=== PATIENT | female | born 1955 | race Caucasian/White ===

== ENCOUNTER → 2020-01-11 08:16 | Outpatient (CLI) | payer MEDICARE, SELFPAY ==
--- NOTE | 2020-01-11 08:19 | BI_ITS ---
MAMMOGRAPHY - BILATERAL SCREENING REASON FOR EXAM: Female, 64 years old. Routine annual screening examination. PERTINENT HISTORY: Non-contributory. Prior right stereotactic breast biopsy. TECHNIQUE: Digital bilateral breast margarito (3D mammographic acquisition) in the CC and MLO projections. 2-D mediolateral oblique (MLO) and craniocaudad (CC) views of both breasts were obtained. CAD: Full Field Digital Mammography with Computer Added Detection was performed. COMPARISON: Comparison is made with prior outside examination dated October 07, 2015. FINDINGS: Breast Composition: The breasts are heterogeneously dense, which may obscure small masses. There are no dominant masses or suspicious calcifications. Stable benign-appearing bilateral axillary lymph nodes. No other significant abnormalities are identified. There has been no significant change since the prior study. BI/SCREEN MAMM (CAD) W/MARGARITO BILAT IMPRESSION: Stable bilateral screening mammogram. Yearly follow-up mammogram recommended. (A) ASSESSMENT CATEGORY: BIRADS Category 2: Benign. A letter regarding these results will be sent to the patient by the facility within 30 days. Approximately 10% of breast cancers are not detected by mammography. A normal mammogram should not delay biopsy of a clinically suspicious abnormality. [id number] Electronically Signed: Victor Manuel Dumont, at 9:51 EDT , Service support ,
--- NOTE | 2020-01-11 08:19 | US_ITS ---
STUDY: SUPERFICIAL ULTRASOUND - PALPABLE LUMP IN THE LEFT AXILLA. REASON FOR EXAM: Female, 64 years old. LUMP LT AXILLA TECHNIQUE: A superficial ultrasound was performed with real-time and static navarro-scale imaging. COMPARISON: None. FINDINGS: The palpable abnormality corresponds to a 3.8 cm x 4.6 cm x 1.1 cm slightly hypoechoic soft tissue density. A biopsy is recommended for further evaluation US/Ext Non Vasc Limited/Soft Tiss IMPRESSION: 3.8 cm x 4.6 cm x 1.1 sinus likely hypoechoic soft tissue mass. This corresponds to the palpable abnormality. A biopsy is recommended. Electronically Signed: Victor Manuel Dumont, at 12:23 EDT , Service support ,
== END ==
PROVIDERS: PCP Family Medicine; Referring Provider Family Medicine; Visit Provider Family Medicine
DX: Z12.31 Encounter for screening mammogram for malignant neoplasm of breast (principal); D17.9 Benign lipomatous neoplasm, unspecified
CPT/HCPCS: 76882; 77063; 77067

== ENCOUNTER → 2020-01-24 08:57 | Outpatient (CLI) | payer MEDICARE, SELFPAY ==
[2020-01-22 09:27] VITALS: BMI 26.5
[2020-01-24 12:50] LABS: Absolute Lymphocyte Count 1.96 X10^3/uL (0.83-4.51); Absolute Neutrophil Count 3.2 X10^3/uL (2.0-7.7); Basophil# 0.02 X10^3/uL; Basophil% 0.3 % (0-1); Eosinophil# 0.17 X10^3/uL; Eosinophils% 2.9 % (0-5); Hematocrit 39.9 % (37-47); Hemoglobin 13.1 g/dL (12.0-15.0); Lymphocyte # 1.96 X10^3/ul (4.0); Lymphocyte % 33.9 % (19-41); Mean Corp Hgb Conc 32.8 g/dL (32-36); Mean Corpuscular Hgb 28.8 pg (27.0-32.0); Mean Corpuscular Volume 87.7 fL (81-99); Mean Platelet Vol. 10.4 fl (6.2-12.0); Monocyte# 0.47 X10^3/uL; Monocyte% 8.1 % (0-10); NRBC Flagged by Analyzer 0 % (0-5); Neutrophil # 3.15 X10^3/uL (2.7-7.7); Neutrophil % 54.6 % (47-70); Platelet Count 261 K/mm3 (150-450); RBC Distribution Width CV 13.6 % (11.6-14.6); RBC Distribution Width SD 43.8 fl (35.1-43.9); Red Blood Count 4.55 M/mm3 (4.2-5.4); White Blood Count 5.8 K/mm3 (4.4-11.0)
[2020-01-24 13:13] LABS: ALB/GLOB Ratio 0.7 RATIO (0.9-2.4); AST(SGOT) 22 U/L (15-37); Alanine Aminotransfer ALT/SGPT 37 U/L (13-56); Albumin, Serum 3.4 g/dL (3.2-5.0); Alkaline Phosphatase 70 U/L (45-117); Anion Gap 7 (5-15); BUN 20 mg/dL (7-18); BUN/Creat Ratio 20.6 RATIO (10-20); Calcium,Total 9.2 mg/dL (8.5-10.1); Chloride 105 mmol/L (98-107); Cholesterol 243 mg/dL (200); Creatinine, Serum 0.97 mg/dL (0.55-1.02); EST Glomerular Filtration Rate 61 mL/min (>60); Est Glom Filt Rate - Afr Amer 74 mL/min (>60); Globulin 4.6 g/dL (2.2-4.2); Glucose 95 mg/dL (74-106); High Density Lipoprotein 50 mg/dL; Potassium 3.7 mmol/L (3.5-5.1); Sodium Level 137 mmol/L (136-145); T4 Free Direct 1.25 ng/dL (0.76-1.46); Thyroid Stim Hormone (TSH) 0.25 uIU/mL (0.358-3.74); Triglycerides 185 mg/dL; Very Low Density Lipoprotein 37 mg/dL (5-40)
== END ==
PROVIDERS: PCP Family Medicine; Visit Provider Family Medicine
DX: E03.9 Hypothyroidism, unspecified (principal); K21.9 Gastro-esophageal reflux disease without esophagitis; I10 Essential (primary) hypertension; L40.9 Psoriasis, unspecified; E78.5 Hyperlipidemia, unspecified
CPT/HCPCS: 36415; 80053; 80061; 84439; 84443; 85025

== ENCOUNTER → 2020-02-05 10:25 | Outpatient (CLI) | payer MEDICARE, SELFPAY ==
[2020-01-22 09:27] VITALS: BMI 26.5
--- NOTE | 2020-02-05 10:27 | US_ITS ---
STUDY: THYROID ULTRASOUND REASON FOR EXAM: Female, 64 years old. NODULE TECHNIQUE: Ultrasound evaluation of the thyroid was performed with real-time and static navarro-scale imaging. COMPARISON: None. FINDINGS: RIGHT LOBE: The right lobe of the thyroid gland measures 4.3 x 1.5 x 1.4 cm. There is a heterogeneous echotexture. There are no demonstrated solid, cystic or complex lesions. LEFT LOBE: The left lobe of the thyroid gland measures 3.6 x 1.2 x 1.2 cm. There is a heterogeneous echotexture. There are no demonstrated solid, cystic or complex lesions. ISTHMUS: The isthmus measures 6 mm . There is a 2.1 x 1.2 x 0.5 cm left cervical node. US/Thyroid IMPRESSION: The left and right thyroid lobes are heterogeneous in echogenicity. There is no evidence of discrete thyroidal cyst, mass, nodule, or focus of architectural distortion. Electronically Signed: Abram Cota MD at 19:45 EDT , Service support ,
== END ==
PROVIDERS: PCP Family Medicine; Referring Provider Family Medicine; Visit Provider Family Medicine
DX: E04.1 Nontoxic single thyroid nodule (principal)
CPT/HCPCS: 76536

== ENCOUNTER 2020-08-18 05:30 | Inpatient (IN) | payer MEDICARE, SELFPAY ==
[2020-01-22 09:27] VITALS: BMI 26.5
[2020-08-18] VITALS (65 sets, daily range): BP systolic 55–172; BP diastolic 27–119; PULSE 60–162; RESP 12–36; TEMP -17.7–38.7; O2SAT 90–100; BMI 31.4; BMI 69.1
--- NOTE | 2020-08-18 05:50 | EKG12_ITS ---
Test Reason : CARDIAC ARREST Blood Pressure : / mmHG Vent. Rate : 154 BPM Atrial Rate : 079 BPM P-R Int : 000 ms QRS Dur : 132 ms QT Int : 300 ms P-R-T Axes : 000 052 -45 degrees QTc Int : 480 ms Supraventricular tachycardia Right bundle branch block T wave abnormality, consider inferior ischemia Abnormal ECG Confirmed by ALEJANDRO CASEY, DANYEL ([id number]), film editor supervisor ALBINA CASTANEDA ([id number]) on 08/19/2020 10:31:23 AM Referred By: Uri Devi Confirmed By:DANYEL ALLEN MD
--- NOTE | 2020-08-18 05:55 | RAD_ITS ---
STUDY: X-RAY CHEST REASON FOR EXAM: Female, 64 years old. chest pain, altered LOC, STEMI. TECHNIQUE: Single AP portable view of the chest. COMPARISON: None. FINDINGS: Endotracheal tube with the tip approximately 5 cm above the gina. Nasogastric tube coiled overlying the heart likely in a hiatal hernia. Alveolar opacity in the upper right lung consistent with right upper lobe pneumonia. There is no demonstrated pleural abnormality. Normal size heart. Normal mediastinum and zain. Normal visualized pulmonary arteries. Normal visualized aortic arch and descending thoracic aorta. Normal visualized thoracic spine. Normal visualized ribs, clavicles, and shoulders. There is no demonstrated abnormality of the visualized soft tissue structures of the upper abdomen. RAD/Chest 1 View (Portable) IMPRESSION: 1. Endotracheal tube with the tip approximately 5 cm above the gina. 2. Nasogastric tube coiled in the hiatal hernia. 3. Right upper lobe pneumonia. Electronically Signed: Indra Ybarra MD at 6:35 EST Tel , Service support ,
--- NOTE | 2020-08-18 05:59 | ED.VIS.GEN ---
History of Present Illness Chief Complaint: CPR Informant: Card Table Attendant Narrative: Patient presents to the ED as a witnessed cardiac arrest. Per EMS, the states that the patient had been complaining of chest pain or shortness of breath off-and-on for the last couple days. This morning after 4 AM, they were both in their living room, she complained of arm and back pain, and then suddenly collapsed in front of the who performed less than satisfactory bystander CPR. EMS took over arriving approximately 10 minutes after the call went out at 0421. They initially found the patient in ventricular fibrillation, they shocked her total of 3 times, they placed an intraosseous line in the right proximal tibia, they gave fluids and epinephrine a total of 5 times after she was found to be in PEA. They continued running ACLS, they called me for medical direction from the scene. I advised to continue ACLS and CPR and transport emergently to the hospital. Upon arrival, status was unchanged she was still in PEA without spontaneous pulses without CPR which was performed by Ghulam device. Past Medical History - Allergies and Home Meds Allergies/Adverse Reactions: Allergies codeine Allergy (Mild, Verified 08/18/20 06:32) Unknown Past Medical History: - - unknown Lives: Spouse/ Significant Other Smoking Status: Never smoker - Family History Maternal Family History: Family History (Last Reviewed 01/22/20 @ 09:26 by Sharri Resendez) Mother Heart disease Cancer Family History: Reports: No pertinent history Paternal Family History: Family History (Last Reviewed 01/22/20 @ 09:26 by Sharri Resendez) Mother Heart disease Cancer Family History: Reports: No pertinent history Review of Systems ROS: Unable to Obtain - obtunded/unresponsive Physical Exam General: Well nourished, Well developed, Obese, - - obtunded/unresponsive Head: Normocephalic, Atraumatic Eyes: - - pupils mid, fixed/NR ENT: Moist mucous membranes, - - Igel in place w/ bloody emesis Neck: Supple Cardiovascular: - - no heart sounds. no pulses w/o CPR. good pulses w/ CPR via Ghulam device. Respiratory: - - equal BS bilat Abdomen: Soft, Nondistended Extremities: - - cool distally, pallorous, atraumatic, flaccid Skin: Cyanosis, Pallor Neurological: Coma - GCS 3t, w/ occasional attempts to take a breath noted Diagnostic/Tx/Re-eval 08/18/20 05:50 Chest 1 View (Portable) [RAD] Stat 08/18/20 05:53 Abdomen Single View (Portable) [RAD] Stat 08/18/20 06:28 Chest 1 View (Portable) [RAD] Stat Laboratory Results 08/18/20 08/18/20 08/18/20 05:40 05:40 05:40 WBC 12.2 H RBC 4.62 Hgb 13.6 Hct 44.5 MCV 96.3 MCH 29.4 MCHC 30.6 L RDW Std Deviation 48.8 H RDW Coeff of Maxwell 13.8 Plt Count 125 L MPV 10.6 Neut % (Auto) Not Reportable Absolute Neuts (auto) 6.5 Absolute Lymphs (auto) 3.80 Total Counted 100 Neutrophils % (Manual) 47 Band Neutrophils % 6 H Lymphocytes % (Manual) 31 Monocytes % (Manual) 12 H Metamyelocytes % 4 H Diff Path Review May foll Platelet Estimate SLT DEC RBC Morphology NORM C+C PT 15.8 H INR 1.3 APTT 62.1 H Sodium 141 Potassium 3.6 Chloride 103 Carbon Dioxide 22.0 Anion Gap 16 H BUN 19 H Creatinine 1.78 H Estim Creat Clear Calc 22.33 Est GFR (MDRD) Af Amer 37 L Est GFR (MDRD) Non-Af 30 L BUN/Creatinine Ratio 10.7 Glucose 388 H Calcium 11.4 H Troponin I 39.100 H* - EKG Initial EKG Interpretation: Atrial Fibrillation, S-T Elevation - lateral leads, S-T Depression - ant-sept Prior: No Prior - Medical Decision Making With 1 round of ACLS including epinephrine, calcium gluconate, bicarbonate, on the first pulse check after these medications were infused, I performed a bedside ultrasound and there was good cardiac squeeze simultaneous with obtaining return of spontaneous circulation and palpable pulses. Blood pressure reading 170s over 120, EKG was immediately obtained and is ambiguous with a right bundle branch block and ST segment changes as above. I sent this to the qa intern Dr. Devi and then simultaneously discussed with him, at this time the patient's clinical condition is that she was obtunded, we remove the I-gel and had already intubated her at this time, and she is pulling breaths on her own, having some reflexive eye movements, but no other signs of responsiveness/recovery. I discussed my concerns that this may be a STEMI. He thought it was best not to take her emergently to the Paramedic Rn given the significant delays involved, and her condition, as well as the EKG. He agreed with heparin but did not want Brilinta or clopidogrel or any other medications, I discussed with hospitalist and manager electrical who requested a central line placed, this was done in the right subclavian vein prior to starting heparin. The side was chosen since it appeared to be abnormal on the chest x-ray showing infiltrates likely related to aspiration. At the time that we started setting up for the central line, her pressure which had been 114 at the time of the phone call had dropped to 76 systolic. We started dopamine and a peripheral IV, this brought her pressure up, and after the central line placement was verified, we switched it over to the line. At this time she is in critical condition, labs are as above, her history is consistent with unstable angina and her cardiac arrest likely was due to an acute MO. Prior to leaving the emergency department, she displayed signs of seizure activity with regular twitching of her head and her eyelids. She was given Ativan 2 mg for this. Otherwise we are leaving her off sedation. - Critical Care Time Critical care time (excluding procedures): 75-104 minutes - 60 min, Including time spent:, Discussing w/Patient &/or Family/Nut Threader, Discussing w/Consultants, Arranging Admission or Transfer, Performing Direct Patient Care at Bedside, - - Exclusive of procedures Procedures Procedure(s): 1. endotracheal intubation --without premedicating the patient since she was obtunded, although breathing on her own, Igel was removed, and under direct laryngoscopy with a MAC 4, I visualized the cords after suctioning blood that was gurgling in the posterior oropharynx/glottis, I waited for the cords to abduct, and passed a 7.5 ETT through them on the first attempt without difficulty. Secured at 21 cm at the lip, good color change on the CO2 cap, fogging of the tube, sats came up from the 70s before intubation begun to the 90s, equal breath sounds are bilaterally. Confirmed with chest x-ray. 2. Central line placement --sterile prep and drape with chlorhexidine, finder needle at the right subclavian vein site immediately found blood on the first attempt, 16 cm triple-lumen catheter placed via modified Seldinger technique, without any difficulty. All 3 ports ny back dark red nonpulsatile blood and flushed easily. Chlorhexidine disc placed against the skin, sutured in place, chest x-ray verified placement, no complications. Patient obtunded throughout the procedure and on the ventilator. ED Disposition - Plan for ED Patient: Disposition: Acute Care [facility] Diagnosis: Cardiopulmonary arrest with successful resuscitation, Acute MO
[2020-08-18 06:00] LABS: Hematocrit 44.5 % (37-47); Hemoglobin 13.6 g/dL (12.0-15.0); Mean Corp Hgb Conc 30.6 g/dL (32-36); Mean Corpuscular Hgb 29.4 pg (27.0-32.0); Mean Corpuscular Volume 96.3 fL (81-99); Mean Platelet Vol. 10.6 fl (6.2-12.0); POSITIVE COUNT YES; POSITIVE DIFFERENTIAL YES; POSITIVE MORPHOLOGY YES; Platelet Count 125 K/mm3 (150-450); RBC Distribution Width CV 13.8 % (11.6-14.6); RBC Distribution Width SD 48.8 fl (35.1-43.9); Red Blood Count 4.62 M/mm3 (4.2-5.4); White Blood Count 12.2 K/mm3 (4.4-11.0)
[2020-08-18 06:01] LABS: Differential Indicated MANUAL DIFF
[2020-08-18 06:05] LABS: International Normalized Ratio 1.3; Prothrombin Time (Protime)PT. 15.8 SECONDS (11.7-14.9)
[2020-08-18 06:06] LABS: Partial Thromboplast Time 62.1 Seconds (24.1-36.2)
[2020-08-18] MEDS: 0.9% Normal Saline 1,000 ML 1000 ML IV (06:06)
[2020-08-18] MEDS: Aspirin 300 MG Suppository RECTAL (06:06)
--- NOTE | 2020-08-18 06:10 | PCM.HP.STD ---
Problem List (1) Hypertension Status: Chronic Qualifiers: Hypertension type: essential hypertension Qualified Code(s): I10 - Essential (primary) hypertension (2) Hyperlipidemia Status: Acute Qualifiers: Hyperlipidemia type: unspecified Qualified Code(s): E78.5 - Hyperlipidemia, unspecified (3) Hypothyroidism Status: Chronic Qualifiers: Hypothyroidism type: unspecified Qualified Code(s): E03.9 - Hypothyroidism, unspecified (4) Cardiopulmonary arrest with successful resuscitation Status: Acute History of Present Illness Date of Admission: 08/18/20 Chief Complaint: Cardiopulmonary arrest The patient is a 64 year old F with past medical history of hypertension, GERD, hyperlipidemia, hypothyroidism who presented to the ED after a cardiopulmonary arrest. History was taken from EMS crew as well as from the ED. Per EMS, patient's states stated that the patient had been complaining of chest pain and shortness of breath on and off for the last couple of days. This morning around 4 AM they were both in their living room and she complained of chest, arm and back pain. Suddenly collapsed in front of her who performed some CPR. The EMS were called and arrived approximately 10 minutes. Initial rhythm was V. fib. Cardiopulmonary resuscitation was started, patient received a total of 3 shocks. An intraosseous line was placed in the right proximal tibia NV and patient was given fluids and had 5 doses of epinephrine after she was found to be in PEA repeatedly. Cardiopulmonary resuscitation apparently went on for about an hour before coming to the emergency department. In the ED, patient was still in PEA and CPR was continued. Patient received a couple doses of epinephrine, sodium bicarbonate, calcium gluconate. Patient was also emergently intubated. Patient regained spontaneous return of circulation. EKG showed a right bundle branch block, atrial fibrillation, no obvious ST segment elevation. STEMI alert was called, cardiology elected not to send patient to the Mat Inspector. IV heparin, IV amiodarone bolus and drip were initiated. Patient dropped her blood pressures to the 70s, she received a central line. IV dopamine was initiated. 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 HTN (hypertension) I10 Allergies codeine Allergy (Mild, Verified 01/22/20 09:28) Unknown Home Medications: Ambulatory Orders Medication Instructions Recorded B-complex with vitamin C 1 cap PO DAILY 01/22/20 calcium carbonate 320 mg calcium PO 01/22/20 (750 mg) chewable tablet conjugated estrogens 0.625 mg/gram VAGINAL 01/22/20 vaginal cream ezetimibe 10 mg tablet mg PO 01/22/20 hydrochlorothiazide 25 mg tablet PO 01/22/20 levothyroxine 112 mcg tablet PO 01/22/20 omega-3 fatty acids 1,000 mg 1,000 mg PO DAILY 01/22/20 capsule Surgical History: - - unknown Psychiatric History: No pertinent psych hx 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 Lives: Spouse/ Significant Other Smoking Status: Never smoker Tobacco Use: Non-smoker - *Family History Maternal Family History: Family History (Last Reviewed 01/22/20 @ 09:26 by Sharri Resendez) Mother Heart disease Cancer History Items: No pertinent history Paternal Family History: Family History (Last Reviewed 01/22/20 @ 09:26 by Sharri Resendez) Mother Heart disease Cancer History Items: No pertinent history Review of Systems Unable to obtain accurate/complete ROS d/t: Unable to obtain because patient was intubated VTE Information - Inpt Only VTE Present on Admission: No VTE Pharm Prophylaxis ordered?: Yes Patient Problems: Active and Suspected Problems (Last Reviewed 01/22/20 @ 09:26 by Sharri Resendez) Cardiopulmonary arrest with successful resuscitation (Acute) Acute FL (Acute) - Physical Exam Vitals/I&O's: Vital Signs Temp Pulse Resp BP Pulse Ox 95.9 F L 77 14 124/88 H 95 08/18/20 06:03 08/18/20 06:03 08/18/20 06:03 08/18/20 06:03 08/18/20 06:03 Oxygen Flow Rate (L/min) 15 Oxygen Delivery Method Ambu-Bag Weight: 73.1 kg Body Mass Index (BMI) 26.5 General: - - Intubated, on mechanical ventilator HEENT: Atraumatic, PERRLA, EOMI, Normocephalic Oral: Dry Mucosa Neck: Supple Lungs: Clear to auscultation, Normal air movement Cardiovascular: Regular rate, Regular Rhythm, Normal S1, Normal S2, No murmurs Abdomen: Bowel Sounds Present, Soft, Non Tender, Non-Distended, No Hepato-splenomegaly Extremities: No edema Skin: - - Psoriatic skin lesions on the right knee, bilateral elbows, right lateral thigh Lymphatic: No Cervical, Supraclavicular, or Inguinal Adenopathy Psych/Mental Status: Normal Affect, Appropriate Laboratory Results 08/18/20 05:40: WBC 12.2 H, RBC 4.62, Hgb 13.6, Hct 44.5, MCV 96.3, MCH 29.4, MCHC 30.6 L, RDW Std Deviation 48.8 H, RDW Coeff of Maxwell 13.8, Plt Count 125 L, MPV 10.6, Neut % (Auto) Not Reportable, Absolute Neuts (auto) Pending 08/18/20 05:40: Sodium Pending, Potassium Pending, Chloride Pending, Carbon Dioxide Pending, Anion Gap Pending, BUN Pending, Creatinine Pending, Est GFR (MDRD) Af Amer Pending, Est GFR (MDRD) Non-Af Pending, BUN/Creatinine Ratio Pending, Glucose Pending, Calcium Pending, Troponin I Pending 08/18/20 05:40: PT 15.8 H, INR 1.3, APTT 62.1 H Current Medications Heparin Sodium (Porcine) (Heparin Injection (Vial) 5,000 Unit/Ml Vial) 0 unit IV UD PRN; Protocol PRN Reason: dose adjustment Sodium Chloride () 1,000 mls @ 1,000 mls/hr IV .Q1H ONE Stop: 08/18/20 06:49 Last Admin: 08/18/20 06:06 Dose: 1,000 mls/hr Documented by: Heparin Sodium/Dextrose () 25,000 units in 250 mls @ 11 mls/hr IV .[id number] OLESYA; Protocol Amiodarone HCl 150 mg/ (Dextrose) 103 mls @ 600 mls/hr IV BOLUS X1 ONE Stop: 08/18/20 06:17 Assessment/Plan All Active Problems (Last Reviewed 01/22/20 @ 09:26 by Sharri Resendez) Cardiopulmonary arrest with successful resuscitation (Acute) Acute FL (Acute) Hyperlipidemia (Acute) 1. Acute cardiopulmonary arrest likely related to Acute FL, witnessed out of hospital arrest Patient had complained of chest pain and shortness of breath ongoing for a couple of days CPR ongoing for more than 1 hour; s/p intubation, on mechanical ventilator, not on any sedatives Continue to monitor off sedatives for neurological signs 2. Hypotension, likely cardiogenic No ST segment elevation noted on EKG Cardiology consulted; 2D echo, trend troponins Cardiology recommend amiodarone drip and heparin drip 3. Leukocytosis, likely reactive 4. CHEYANNE, prerenal related to cardiopulmonary arrest Continue on IV fluids Repeat labs in am 5. DVT PPx- Heparin drip Inpatient E&M: 97719 Init Hosp L3
[2020-08-18] MEDS: DOPamine IV 800 MG/250 ML IV.SOLN. 6.9 MG CONT INF (06:11)
[2020-08-18 06:23] LABS: Metamyelocyte 4 % (0-1); Neutrophil-Band 6 % (0-5); Neutrophil-Segmented 47 % (47-70); Total Cells Counted 100 (MANUAL DIFF)
[2020-08-18 06:24] LABS: Absolute Neutrophil Count 6.5 X10^3/uL (2.0-7.7); Lymphocyte 31 % (19-41); Monocyte 12 % (0-10); Platelet Estimate SLT DEC (ADEQ); Red Cell Morphology NORM C+C NORMAL (NORM C&C)
[2020-08-18] MEDS: Heparin Injection (Vial) 5,000 UNIT/ML VIAL 5000 UNIT IV (06:26)
--- NOTE | 2020-08-18 06:28 | RAD_ITS ---
STUDY: X-RAY CHEST REASON FOR EXAM: Female, 64 years old. LINE PLACEMENT. TECHNIQUE: Single AP portable view of the chest. COMPARISON: 08/18/2020 at 05 41 FINDINGS: Interval placement of right subclavian deep venous line with the tip of the catheter overlying the junction of right atrium and superior vena cava with no pneumothorax. Endotracheal tube and nasogastric tube both which are unchanged. No change in the alveolar opacity in the upper right lung consistent with right upper lobe pneumonia. There is no demonstrated pleural abnormality. Normal size heart. Normal mediastinum and zain. Normal visualized pulmonary arteries. Normal visualized aortic arch and descending thoracic aorta. Normal visualized thoracic spine. Normal visualized ribs, clavicles, and shoulders. There is no demonstrated abnormality of the visualized soft tissue structures of the upper abdomen. RAD/Chest 1 View (Portable) IMPRESSION: 1. Interval placement of right subclavian deep venous line with tip the catheter overlying the junction of the right atrium and superior vena cava with no pneumothorax. 2. Endotracheal tube and nasogastric tube both which are unchanged. 3. No change in right upper lobe pneumonia. Electronically Signed: Indra Ybarra MD at 7:15 EST Tel , Service support ,
[2020-08-18] MEDS: HEPARIN/D5w 25,000 UNITS 25,000 UNITS/250 ML IV.SOLN. 11 UNITS IV (06:30)
[2020-08-18 06:34] LABS: Anion Gap 16 (5-15); BUN 19 mg/dL (7-18); BUN/Creat Ratio 10.7 RATIO (10-20); Calcium,Total 11.4 mg/dL (8.5-10.1); Chloride 103 mmol/L (98-107); Creatinine, Serum 1.78 mg/dL (0.55-1.02); EST Glomerular Filtration Rate 30 mL/min (>60); Est Glom Filt Rate - Afr Amer 37 mL/min (>60); Estimated Creatinine Clearance 22.33 ml/min; Glucose 388 mg/dL (74-106); Potassium 3.6 mmol/L (3.5-5.1); Sodium Level 141 mmol/L (136-145)
[2020-08-18] MEDS: LORazepam 2 MG/ML Syringe IV ×3 (06:39→20:28)
[2020-08-18] MEDS: Amiodarone 360 MG in Dextrose 5% Viaflo Bag 192.8 ML 33.3 MG CONT INF (06:48)
--- NOTE | 2020-08-18 06:50 | RAD_ITS ---
STUDY: X-RAY - ABDOMEN/PELVIS REASON FOR EXAM: Female, 64 years old. NG PLACEMENT TECHNIQUE: Single AP view of the abdomen / pelvis. COMPARISON: None. FINDINGS: Nasogastric tube coiled overlying the heart likely in a hiatal hernia. There is an unremarkable bowel gas pattern. The visualized liver, spleen and kidneys are grossly normal in size and morphology. Normal soft tissue structures. Normal visualized osseous structures. RAD/Abdomen Single View (Portable) IMPRESSION: 1. Nasogastric tube coiled over the heart likely a hiatal hernia. 2. No bowel obstruction. Electronically Signed: Indra Ybarra MD at 7:15 EST Tel , Service support ,
--- NOTE | 2020-08-18 07:45 | ECHOCS_ITS ---
Reason For Study: Cardiopulmonary Arrest Procedure This was a 2D Doppler, Color Flow transthoracic echocardiogram. Technically difficult study, patient scanned supine and on vent. Contrast injection performed. Exam performed portable in ICU/CCU. Left Ventricle Mildly dilated left ventricle. The estimated ejection fraction is 15 %. Severe global left ventricular systolic dysfunction. Stage 3 diastolic dysfunction. Increased LA filling pressure. Anterio-Basal: Severely hypokinetic. Lateral-Basal: Severely Hypokinetic. Posterior-Basal: Akinetic. Infero-Basal: Hypokinetic. Basal inferoseptal: Hypokinetic. Basal anteroseptal: Severely Hypokinetic. Mid-Anterior : Severely Hypokinetic. Mid-Lateral : Severely Hypokinetic. Mid-Posterior: Akinetic. Mid-Inferior: Hypokinetic. Anterior [place] : Hypokinetic. Inferior [place] : Hypokinetic. Septal [place] : Hypokinetic. [place] : Hypokinetic. Right Ventricle Mildly dilated right ventricle. Severely decreased right ventricular systolic function. Atria Normal left atrium. Normal right atrium. Mitral Valve Trivial mitral valve insufficiency. Tricuspid Valve Unable to estimate RV systolic pressure due to insufficient tricuspid regurgitant envelope. Trivial tricuspid valve insufficiency. Aortic Valve aortic sclerosis. Pulmonic Valve not well seen. Great Vessels Normal inferior vena cava. Pericardium/Pleural No pericardial effusion. Medication Diluted definity 4ml given slow IV push to enhance endocardial definition. MMode/2D Measurements & Calculations LVIDd: 3.8 cm IVSd: 0.60 cm LA dimension: 2.3 cm LVIDs: 3.6 cm LVPWd: 0.80 cm FS: 5.9 % LAV(MOD-bp): 16.7 ml LVAd ap4: 22.9 cm2 SV(MOD-sp4): 8.9 ml LAV(MOD-bp) Indexed: 9.8 ml/m2 EDV(MOD-sp4): 66.3 ml LAV(MOD-sp2): 23.2 ml EDV(sp4-el): 68.2 ml LAV(MOD-sp4): 11.9 ml LVAs ap4: 20.3 cm2 ESV(MOD-sp4): 57.4 ml ESV(sp4-el): 59.2 ml EF(MOD-sp4): 13.4 % EF(sp4-el): 13.2 % SV(sp4-el): 9.0 ml LA A4 area: 8.2 cm2 RA A4 area: 8.0 cm2 Time Measurements MV dec time: 0.17 sec Doppler Measurements & Calculations MV E max ephraim: 84.1 cm/sec Lat Peak E' Ephraim: 5.2 cm/sec Med Peak E' Ephraim: 6.6 cm/sec E/E' lat: 16.0 E/E' med: 12.8 MV V2 max: 86.3 cm/sec MV P1/2t max ephraim: 86.7 cm/sec Ao V2 max: 83.0 cm/sec MV max P.0 mmHg MV P1/2t: 74.6 msec Ao max P.8 mmHg MV V2 mean: 41.9 cm/sec MV mean P.89 mmHg MV dec slope: 340.4 cm/sec2 MV V2 VTI: 16.1 cm MVA(P1/2t): 2.9 cm2 LV V1 max: 69.6 cm/sec LV V1 max P.9 mmHg Interpretation Summary Stage 3 diastolic dysfunction. The estimated ejection fraction is 15 %. Severe global left ventricular systolic dysfunction. Increased LA filling pressure Mildly dilated left ventricle. Mildly dilated right ventricle. Severely decreased right ventricular systolic function Ordering Physician: Dinorah Hameed Referring Physician: Uri Devi Performed By: Yovani Juarez RCS
[2020-08-18 08:16] LABS: Blood Gas Specimen Type VEN; O2 Delivery Device Adult Vent; PEEP 10; SITE L Brach; VBG BASE EXCESS -12 mmol/L (-1.0-3.5); VBG Bicarbonate 19 mmol/L (22-26); VBG PO2 25 mmHg (25-40); VBG SO2 23 % (50-70); VBG TCO2 21 mmol/L (23-33); VBG pCO2 76.8 mmHg (41-51)
--- NOTE | 2020-08-18 08:39 | CPS ---
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
[2020-08-18 08:53] LABS: Magnesium 2.5 mg/dL (1.6-2.6); Potassium 4.8 mmol/L (3.5-5.1)
--- NOTE | 2020-08-18 08:57 | NT.THERAPY_ITS ---
Nutrition Therapy Report - History Nutrition Services has been consulted to:: Manage nutrient details of diet order Current diet / nutrition support order:: NPO - Anthropometric Measurements Height:: 5 ft Weight:: 73.1 kg Body Mass Index (BMI):: 31.4 - Relevant Labs Relevant Labs:: WBC 12.2 K/mm3 (4.4-11.0) H 08/18/20 05:40 MCHC 30.6 g/dL (32-36) L 08/18/20 05:40 RDW Std Deviation 48.8 fl (35.1-43.9) H 08/18/20 05:40 Plt Count 125 K/mm3 (150-450) L 08/18/20 05:40 Band Neutrophils % 6 % (0-5) H 08/18/20 05:40 Monocytes % (Manual) 12 % (0-10) H 08/18/20 05:40 Metamyelocytes % 4 % (0-1) H 08/18/20 05:40 PT 15.8 SECONDS (11.7-14.9) H 08/18/20 05:40 APTT 62.1 Seconds (24.1-36.2) H 08/18/20 05:40 Anion Gap 16 (5-15) H 08/18/20 05:40 BUN 19 mg/dL (7-18) H 08/18/20 05:40 Creatinine 1.78 mg/dL (0.55-1.02) H 08/18/20 05:40 Est GFR (MDRD) Af Amer 37 mL/min (>60) L 08/18/20 05:40 Est GFR (MDRD) Non-Af 30 mL/min (>60) L 08/18/20 05:40 Glucose 388 mg/dL (74-106) H 08/18/20 05:40 Calcium 11.4 mg/dL (8.5-10.1) H 08/18/20 05:40 Troponin I 39.300 ng/mL (<0.045) H* 08/18/20 08:05 - Assessment Food / Nutrition-Related History:: Unable to talk to pt d/t on vent w/ OG in place. Pt currently NPO. Diet fishing captain/ UBW not available at this time to review. [ End ] - Nutrition Diagnosis Problem / Etiology / Signs & Symptoms (PES):: Pt w/ suboptimal po intake r/t on vent aeb npo status. [ End ] Evidence of Malnutrition Exists:: No - Nutrition Intervention Nutrition Prescription:: [id number] catia / 60-70 gm pro /day - Food / Nutrient Delivery Interventions Summary of nutrition intervention:: When able to resume po diet, rec RUDOLPH to Cardiac. While on vent enteral nutrition support - rec Vital AF 1.2 at goal rate 50 ml/hr w/ 75 ml free water every 4 hours to provide ~ 1440 catia / 90 gm pro / 1423 ml free water/day. Would start tf at 25 ml/hr and increase to goal rate after 8 hours as pt tolerates. Nutrition support ordered as / adjusted to:: While on vent enteral nutrition support - rec Vital AF 1.2 at goal rate 50 ml/hr w/ 75 ml free water every 4 hours to provide ~ 1440 catia / 90 gm pro / 1423 ml free water/day. Would start tf at 25 ml/hr and increase to goal rate after 8 hours as pt tolerates. Nutrition education provided?: No - MNT Monitoring Further MNT monitoring and evaluation required?: Yes MNT Follow-up in:: 3-5 days - please call RD/LD if questions/concerns x [phone]
--- NOTE | 2020-08-18 09:11 | CON.PCM_ITS ---
Problem List (1) Acute respiratory failure with hypoxia Status: Acute (2) Cardiopulmonary arrest with successful resuscitation Status: Acute (3) Acute HI Status: Acute (4) Hypertension Status: Chronic Qualifiers: Hypertension type: essential hypertension Qualified Code(s): I10 - Essential (primary) hypertension (5) Hyperlipidemia Status: Acute Qualifiers: Hyperlipidemia type: unspecified Qualified Code(s): E78.5 - Hyperlipidemia, unspecified (6) Hypothyroidism Status: Chronic Qualifiers: Hypothyroidism type: unspecified Qualified Code(s): E03.9 - Hypothyroidism, unspecified Reason for Consult Date of Consultation: 08/18/20 Reason for Consultation: Status post arrest History of Present Illness: The patient is a 64 year old F, with no reported past medical history, who presented to [facility] on 08/18/2020 after having a witnessed arrest. Patient reportedly had been complaining of chest pain and shortness of breath for the last couple of days. This morning at 4 AM, patient complained of acute onset of arm and back pain and then collapsed in front of her . Patient received CPR for 10 minutes prior to EMS arrival. At that time, patient was noted to be in V. fib and was shocked a total of 3 times. Patient also had an IO placed and received 5 doses of epinephrine. Patient continued to have ACLS until arriving in the ER. On arrival to the emergency room, patient continued to have CPR. Patient was given 1 dose of epinephrine and ROSC was noted. Patient had her LMA transition to an endotracheal tube. Cardiology was called secondary to concerns for an ST elevation HI. Amusement Ride Inspector was mobilized, but patient was not taken. Defer to cardiac documentation. Patient was then transitioned to a subclavian central line and admitted to the intensive care unit for further evaluation. Reportedly, just prior to transfer to the intensive care unit patient had a noted seizure. Patient was given 2 mg of Ativan with good response. Patient is currently obtunded and breathing over the ventilator. No purposeful movement is noted. Pupils are pinpoint and sluggish. Patient is not responding to painful stimuli. There was some bright red blood noted in the OG tube. Unable to obtain review of systems secondary to patient's condition. Per ER staff, patient is to remain a full code. 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 HTN (hypertension) I10 Allergies codeine Allergy (Mild, Verified 08/18/20 06:32) Unknown Home Medications: Ambulatory Orders Medication Instructions Recorded B-complex with vitamin C 1 cap PO DAILY 01/22/20 calcium carbonate 320 mg calcium PO 01/22/20 (750 mg) chewable tablet conjugated estrogens 0.625 mg/gram VAGINAL 01/22/20 vaginal cream ezetimibe 10 mg tablet mg PO 01/22/20 hydrochlorothiazide 25 mg tablet PO 01/22/20 levothyroxine 112 mcg tablet PO 01/22/20 omega-3 fatty acids 1,000 mg 1,000 mg PO DAILY 01/22/20 capsule Surgical History: - - unknown Psychiatric History: No pertinent psych hx 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 Lives: Spouse/ Significant Other Smoking Status: Never smoker Tobacco Use: Non-smoker - *Family History Maternal Family History: Family History (Last Reviewed 01/22/20 @ 09:26 by Sharri Resendez) Mother Heart disease Cancer History Items: No pertinent history Paternal Family History: Family History (Last Reviewed 01/22/20 @ 09:26 by Sharri Resendez) Mother Heart disease Cancer History Items: No pertinent history Review of Systems Unable to obtain accurate/complete ROS d/t: Full arrest with probable anoxia Patient Problems: Active and Suspected Problems (Last Reviewed 01/22/20 @ 09:26 by Sharri Resendez) Cardiopulmonary arrest with successful resuscitation (Acute) Acute HI (Acute) Hyperlipidemia (Acute) Objective: All imaging was personally reviewed. Patient has a diffuse alveolar infiltrate, right greater than left. Patient also has the OG coiled in what appears to be a hiatal hernia. Supportive devices are otherwise in good position - Physical Exam Vitals/I&O's: Vital Signs Temp Pulse Resp BP Pulse Ox 35.6 C L 110 H 24 H 78/63 L 92 08/18/20 08:00 08/18/20 08:15 08/18/20 08:00 08/18/20 08:15 08/18/20 08:00 Oxygen Flow Rate (L/min) 15 Oxygen Delivery Method Mechanical Ventilator Weight: 73.1 kg Body Mass Index (BMI) 31.4 Intake and Output for Last 24 Hours 08/16/20 08/17/20 08/18/20 23:59 23:59 23:59 Intake Total 12.54 / 12.54 Balance 12.54 / 12.54 General: Lethargic, Non-Cooperative, - - Breathing over the vent. Positive gag with negative cough HEENT: Atraumatic, Normocephalic, - - Pupils are pinpoint and sluggish. Oral: Moist Mucosa, No Gingival or Mucosal Lesions/ Ulcerations Neck: Supple, No JVD, No Nodes, Trachea Midline Lungs: No rhonchi, No wheeze, Diminished, Rales - Right greater than left Cardiovascular: Normal S1, Normal S2, No murmurs, No rub noted, No Gallop, Tachycardic Abdomen: Bowel Sounds Present, Soft, Non Tender, Non-Distended Extremities: No clubbing, No cyanosis, Cool, - - Difficult to palpate peripheral pulses Skin: No rashes, No breakdown Musculoskeletal: No Tenderness to Palpation of Joints or Extremities Lymphatic: No Cervical, Supraclavicular, or Inguinal Adenopathy Neurological: - - Positive gag, but negative cough. Pupils are pinpoint and sluggish. Not localizing to stimulus. Breathing over the vent. Psych/Mental Status: Flat Affect Microbiology Past 72 Hours 08/18/20 06:21 Mucosa - Nose SARS-CoV-2 Antigen (Rapid) - Final Laboratory Results 08/18/20 05:40: WBC 12.2 H, RBC 4.62, Hgb 13.6, Hct 44.5, MCV 96.3, MCH 29.4, MCHC 30.6 L, RDW Std Deviation 48.8 H, RDW Coeff of Maxwell 13.8, Plt Count 125 L, MPV 10.6, Neut % (Auto) Not Reportable, Absolute Neuts (auto) 6.5, Absolute Lymphs (auto) 3.80, Total Counted 100, Neutrophils % (Manual) 47, Band Neutrophils % 6 H, Lymphocytes % (Manual) 31, Monocytes % (Manual) 12 H, Metamyelocytes % 4 H, Diff Path Review May , Platelet Estimate SLT DEC, RBC Morphology NORM C+C 08/18/20 05:40: Sodium 141, Potassium 3.6, Chloride 103, Carbon Dioxide 22.0, Anion Gap 16 H, BUN 19 H, Creatinine 1.78 H, Estim Creat Clear Calc 22.33, Est GFR (MDRD) Af Amer 37 L, Est GFR (MDRD) Non-Af 30 L, BUN/Creatinine Ratio 10.7, Glucose 388 H, Calcium 11.4 H, Troponin I 39.100 H* 08/18/20 05:40: PT 15.8 H, INR 1.3, APTT 62.1 H 08/18/20 08:05: Troponin I 39.300 H* 08/18/20 08:05: Potassium 4.8, Magnesium 2.5 08/18/20 08:09: Specimen Type YOLANDA, Sample Site L Brach, VBG pH 7.00 L*, VBG pO2 25, VBG HCO3 19 L, VBG Total CO2 21 L, VBG O2 Sat (Calc) 23 L, VBG Base Excess - 12 L, POC Mix VBG pCO2 Pt Tmp 76.8 H*, O2 Delivery Device Adult Vent, POC PEEP 10 Current Medications Heparin Sodium (Porcine) (Heparin Injection (Vial) 5,000 Unit/Ml Vial) 0 unit IV UD PRN; Protocol PRN Reason: dose adjustment Heparin Sodium/Dextrose () 25,000 units in 250 mls @ 11 mls/hr IV .[id number] [facility]; Protocol Last Admin: 08/18/20 06:30 Dose: 1,100 units/hr, 11 mls/hr Documented by: Dopamine HCl/Dextrose () 800 mg in 250 mls @ 6.853 mls/hr CONT INF .[id number] [facility]; Protocol Last Titration: 08/18/20 08:00 Dose: 7.5 mcg/kg/min, 10.3 mls/hr Documented by: Amiodarone HCl 360 mg/ (Dextrose) 200 mls @ 33.333 mls/hr CONT INF .Q6H [facility] Stop: 08/18/20 12:34 Last Admin: 08/18/20 06:48 Dose: 1 mg/min, 33.3 mls/hr Documented by: Amiodarone HCl 360 mg/ (Dextrose) 200 mls @ 16.667 mls/hr CONT INF .Q12H [facility] Stop: 08/19/20 06:33 Norepinephrine Bitartrate 8 mg (/ Sodium Chloride) 250 mls @ 9.375 mls/hr CONT INF .[id number] [facility]; Protocol Last Admin: 08/18/20 08:15 Dose: 5 mcg/min, 9.4 mls/hr Documented by: Sodium Chloride () 250 mls @ 15 mls/hr IV .[id number] PRN PRN Reason: Saline Flush Sodium Chloride () 250 mls @ 15 mls/hr IV .[id number] PRN PRN Reason: Additional IVPB Infusion Sodium Chloride (0.9% Saline Lock 10 Ml Syringe) 10 - 40 ml IV UD PRN PRN Reason: Multilumen/Costello Flush Sodium Chloride (0.9 % Nacl (Sterile) Posiflush 10 Ml) 10 - 40 ml IV UD PRN PRN Reason: Port access or dressing change Sodium Chloride (0.9% Saline Lock 10 Ml Syringe) 10 - 40 ml IV UD PRN PRN Reason: SALINE FLUSH Clinical Impression(s) from Imaging Studies Chest X-Ray 08/18/20 05:55 IMPRESSION: 1. Endotracheal tube with the tip approximately 5 cm above the gina. 2. Nasogastric tube coiled in the hiatal hernia. 3. Right upper lobe pneumonia. Electronically Signed: Indra Ybarra MD at 6:35 EST Tel , Service support , Chest X-Ray 08/18/20 06:28 IMPRESSION: 1. Interval placement of right subclavian deep venous line with tip the catheter overlying the junction of the right atrium and superior vena cava with no pneumothorax. 2. Endotracheal tube and nasogastric tube both which are unchanged. 3. No change in right upper lobe pneumonia. Electronically Signed: Indra Ybarra MD at 7:15 EST Tel , Service support , KUB X-Ray 08/18/20 06:50 IMPRESSION: 1. Nasogastric tube coiled over the heart likely a hiatal hernia. 2. No bowel obstruction. Electronically Signed: Indra Ybarra MD at 7:15 EST Tel , Service support , Assessment/Plan Active and Suspected Problems (Last Reviewed 01/22/20 @ 09:26 by Sharri Resendez) Cardiopulmonary arrest with successful resuscitation (Acute) Acute HI (Acute) Hyperlipidemia (Acute) RECOMMENDATIONS: 1. Cardiac management per cardiology 2. Transition from dopamine to Levophed 3. Hold on tube feeds. Recheck KUB and chest x-ray in a.m. 4. Monitor for seizure activity 5. Hold antihypertensive medications 6. Initiate empiric antibiotics IMPRESSIONS: 1. V. fib arrest secondary to probable acute myocardial infarction Cardiology has been consulted and elected not to proceed with interventions. We will continue to address hemodynamics as possible. Echocardiogram has been ordered. Continue to monitor electrolytes with repletion as necessary. Patient is at high risk for recurrence of electrical abnormalities. Await cardiology recommendations. 2. Probable anoxic brain injury/new onset seizure Patient reportedly has up to 60 minutes of downtime, but reportedly did receive CPR. Patient appears to be at a significant risk for anoxic brain injury. Continue to monitor clinically. Hold on sedation if possible. Ativan as needed for seizure. May obtain a CT of the head for evaluation in the future. 3. Acute hypoxic respiratory failure Clinical suspicion for acute hypoxic respiratory failure secondary to problem #1. However, little history is known at this time. Patient is reportedly not a smoker. Patient does have diffuse alveolar findings on chest x-ray. This may be secondary to pulmonary contusion, aspiration or pulmonary edema. No Lasix will be given given hemodynamics. Will place patient on empiric antibiotics for now. Hold off on steroids as patient does not have a history of obstructive lung disease and is a reported non-smoker. Increase PEEP as necessary. Attempt to get FiO2 60% or less. 4. Hiatal hernia Patient is coiling of the OG and what appears to be a hiatal hernia. Will attempt to leave this in place and see if it will fall into position after warming up. If not, this may need to be replaced endoscopically with the assistance of surgery. We will hold off for now. Repeat chest x-ray and KUB have been ordered for a.m. Tube feeds and medication should not be placed on the OG in the interim. 5. Acute kidney injury secondary to #1 No history of chronic kidney disease. Patient did have a creatinine of 1 in January 2020. Clinical suspicion for prerenal etiology secondary to #1. We will continue to monitor. Cannot exclude the need for CHIEF CLERK in the future. Electrolytes appear to be acceptable at this time. 6. Hyperglycemia No reported history of diabetes mellitus. Patient does have elevated glucose, but this may be secondary to acute stress reaction. Cover with sliding scale insulin at this point. No basal insulin as patient will not have tube feeds initially. 7. Poor history/obesity/hypertension Complicates care, management, recovery and prognosis. Hold antihypertensive medications for now. TIME: 55 minutes critical care time spent addressing patient's V. fib arrest, possible anoxic injury, acute hypoxic respiratory failure, acute kidney injury, review of all data and collaboration with care team (7 AM to 9:30 AM) [phone]: [id number] Critical care first hour
[2020-08-18] MEDS: 0.9% Saline Lock 10 ML Syringe IV ×4 (10:38→20:28)
[2020-08-18] MEDS: Chlorhexidine 15 ML PO ×2 (10:38→21:11)
[2020-08-18] MEDS: Famotidine 200 MG/20 ML MDV 20 MG in 0.9% Normal Saline (Pres. free 8 ML 300 MG IV (10:38)
--- NOTE | 2020-08-18 10:47 | PCM.CONS.C ---
Problem List (1) Cardiogenic shock Status: Acute Comment: Secondary to acute myocardial infarct. According to the echocardiogram done at the bedside patient does have underlying severe triple-vessel coronary artery disease (2) Acute [place] Status: Acute Qualifiers: Myocardial infarction type: ST elevation myocardial infarction (3) Acute respiratory failure with hypoxia Status: Acute (4) Hypoxic encephalopathy Status: Acute Comment: the return of sustained spontaneous circulation was only achieved after 90 minutes at home, the chances of severe hypoxic encephalopathy is highly likely Reason for Consult Date of Consultation: 08/18/20 History of Present Illness: The patient is a 64 year old F according to the boyfriend has been complaining of on and off left-sided chest pain for 2 days. She refused to come to the hospital. This morning at 4 AM she was up as well as the boyfriend, she complained of sudden onset of chest pain and collapsed. The boyfriend tried to do CPR. The ambulance arrived in 10 minutes. She had a shockable rhythm of ventricular fibrillation. She was shocked several times and given at least 3 epinephrine injections over a period of 90 minutes at home before sustained ROSC. She was transferred to the emergency room and there she had couple of effort of CPR with shockable rhythm again. She was given 2 more injections of epinephrine in the emergency room. EKG shows sinus tachycardia with anterolateral wall ST elevation myocardial infarct. According to the boyfriend, patient never had any history of CVA or myocardial infarct echocardiogram done at the bedside showed mildly dilated left ventricle with severe global hypokinesis. Estimated ejection fraction was under 15%. There was decreased right ventricular systolic wall motion as well. Blood gas admission showed patient is very acidotic with pH of 7.0. At the moment patient has been on IV Levophed to sustain blood pressure. She is now sedated and has had no spontaneous movement of the limbs. She has had some spontaneous breathing. She is intubated on 100% oxygen. She is known to have hypertension and hyperlipidemia [] Past Medical History Allergies/Adverse Reactions: Allergies codeine Allergy (Mild, Verified 08/18/20 06:32) Unknown Home Medications: Ambulatory Orders Medication Instructions Recorded B-complex with vitamin C 1 cap PO DAILY 01/22/20 calcium carbonate 320 mg calcium PO 01/22/20 (750 mg) chewable tablet conjugated estrogens 0.625 mg/gram VAGINAL 01/22/20 vaginal cream ezetimibe 10 mg tablet mg PO 01/22/20 hydrochlorothiazide 25 mg tablet PO 01/22/20 levothyroxine 112 mcg tablet PO 01/22/20 omega-3 fatty acids 1,000 mg 1,000 mg PO DAILY 01/22/20 capsule Past Medical History (Chronic Problems): Chronic Problems (Last Reviewed 01/22/20 @ 09:26 by Sharri Resendez) Hypertension (Chronic) Hypothyroidism (Chronic) Surgical History: - - unknown Psychiatric History: No pertinent psych hx 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 - *Family History Maternal Family History: Family History (Last Reviewed 01/22/20 @ 09:26 by Sharri Resendez) Mother Heart disease Cancer History Items: No pertinent history Paternal Family History: Family History (Last Reviewed 01/22/20 @ 09:26 by Sharri Resendez) Mother Heart disease Cancer History Items: No pertinent history Lives: Spouse/ Significant Other Smoking Status: Never smoker Tobacco Use: Non-smoker Review of Systems - Review of Systems General: Reports: - - Unobtainable due to intubation Objective: Vital Signs Temp Pulse Resp BP Pulse Ox 96.1 F L 110 H 24 H 78/63 L 92 08/18/20 08:00 08/18/20 08:15 08/18/20 08:00 08/18/20 08:15 08/18/20 08:00 Oxygen Flow Rate (L/min) 15 Oxygen Delivery Method Mechanical Ventilator Weight: 161 lb 2.526 oz Body Mass Index (BMI) 31.4 Intake and Output for Last 24 Hours 08/16/20 08/17/20 08/18/20 23:59 23:59 23:59 Intake Total 1118.12 / 1118.12 Balance 1118.12 / 1118.12 General: - - Intubated HEENT: Atraumatic Lungs: Rales - Abilio Bases, Rhonchi Cardiovascular: Regular Rhythm, No Murmurs Vascular: Decreased R Radial Pulse, Decreased L Radial Pulse, Decreased R Dorsalis Pedal Pulse, Decreased L Dorsalis Pedal Pulse, Decreased R Posterior Tibial Pulse, Decreased L Posterior Tibial Pulse Abdomen: Bowel Sounds Present, Soft Extremities: No edema Skin: - - Cold and clammy Neurological: - - Intubated Psych/Mental Status: - - Intubated 08/18/20 05:40: WBC 12.2 H, RBC 4.62, Hgb 13.6, Hct 44.5, MCV 96.3, MCH 29.4, MCHC 30.6 L, Plt Count 125 L, MPV 10.6, Neut % (Auto) Not Reportable, Absolute Neuts (auto) 6.5, Total Counted 100, Neutrophils % (Manual) 47, Band Neutrophils % 6 H, Lymphocytes % (Manual) 31, Monocytes % (Manual) 12 H, Metamyelocytes % 4 H 08/18/20 05:40: Sodium 141, Potassium 3.6, Chloride 103, Carbon Dioxide 22.0, Anion Gap 16 H, BUN 19 H, Creatinine 1.78 H, Est GFR (MDRD) Af Amer 37 L, Est GFR (MDRD) Non-Af 30 L, BUN/Creatinine Ratio 10.7, Glucose 388 H, Calcium 11.4 H, Troponin I 39.100 H* 08/18/20 05:40: PT 15.8 H, INR 1.3, APTT 62.1 H 08/18/20 08:05: Troponin I 39.300 H* 08/18/20 08:05: Potassium 4.8, Magnesium 2.5 08/18/20 08:09: VBG pH 7.00 L*, VBG pO2 25, VBG HCO3 19 L, VBG O2 Sat (Calc) 23 L, VBG Base Excess -12 L Rhythm: EKG: ECHO: Stress Test: Cardiac Cath: PCI: CT Surgery: Holter monitor: EPS: PPM: CXR: Chest CT Scan: Assessment/Plan Patient has had out of hospital cardiac arrest due to myocardial infarct with symptoms started 2 days ago. Patient has had prolonged resuscitation with sustained ROSC only after 90 minutes at home before transport to the hospital. She did have a shockable ventricular fibrillation rhythm. She was given more than 3 epinephrine injection. She is very acidotic with a pH of 7.0. Echocardiogram done showed dilated left ventricle with severe global hypokinesis suggestive of triple-vessel coronary artery disease. Ejection fraction is estimated to be under 15%. At the moment patient is in cardiogenic shock with hypotension and pulmonary edema. Tissue Doppler signal from echocardiogram suggestive of very high left atrial filling pressure. At the moment patient is on IV inopressor. She has had no spontaneous movement with severe hypoxic encephalopathy. Her cardiac arrest hospital prognosis score is over 200 on the basis of her age, out of hospital cardiac arrest, amount of epinephrine given, time to sustain ROSC and pH of 7.0 on admission. The chances of survival is close to 0 especially with severe hypoxic encephalopathy. I have discussed the situation with her boyfriend. He understands that her prognosis is extremely poor. At this point no invasive angiogram would be helpful to improve her prognosis. She will be treated conservatively
[2020-08-18 12:06] LABS: Bedside Glucose 263 mg/dL (70-110)
[2020-08-18] MEDS: Insulin Lispro 100 UNIT/ML INSULN.PEN SC ×2 (12:06→18:20)
[2020-08-18] MEDS: Amiodarone 360 MG in Dextrose 5% Viaflo Bag 192.8 ML 16.7 MG CONT INF (12:31)
[2020-08-18 12:40] LABS: Partial Thromboplast Time > 250.0 Seconds (24.1-36.2)
--- NOTE | 2020-08-18 14:12 | PCM.HOSP.N ---
Hospitalist Note Patient was seen and examined briefly in the ICU today, she is not on sedation, she is unresponsive to stimuli. I talked briefly with pulmonary medicine about her care. Prognosis is very guarded at this point.
[2020-08-18] MEDS: Furosemide 40 MG/4 ML Vial IV (18:20)
[2020-08-18 18:31] LABS: Bedside Glucose 157 mg/dL (70-110)
--- NOTE | 2020-08-18 21:00 | NURSING ---
Pt core temp cont to rise, ice packs placed to mandeep groin and axilla and over sternum to attempt cooling.
[2020-08-18] MEDS: Acetaminophen 650 MG Suppository RECTAL (21:52)
[2020-08-18 23:16] LABS: Bedside Glucose 144 mg/dL (70-110)
[2020-08-19] VITALS (43 sets, daily range): BP systolic 75–141; BP diastolic 21–104; PULSE 0–118; RESP 12–34; TEMP 37.2–38.4; O2SAT 95–100
[2020-08-19 04:11] LABS: Lactic Acid 10.6 mmol/L (0.4-1.9)
[2020-08-19 04:36] LABS: ALB/GLOB Ratio 0.6 RATIO (0.9-2.4); AST(SGOT) 5020 U/L (15-37); Alanine Aminotransfer ALT/SGPT 4894 U/L (13-56); Albumin, Serum 2.3 g/dL (3.2-5.0); Alkaline Phosphatase 100 U/L (45-117); Anion Gap 22 (5-15); BUN 41 mg/dL (7-18); BUN/Creat Ratio 11.1 RATIO (10-20); Chloride 111 mmol/L (98-107); Creatinine, Serum 3.71 mg/dL (0.55-1.02); EST Glomerular Filtration Rate 13 mL/min (>60); Est Glom Filt Rate - Afr Amer 16 mL/min (>60); Estimated Creatinine Clearance 10.71 ml/min; Globulin 3.9 g/dL (2.2-4.2); Glucose 131 mg/dL (74-106); Magnesium 2.4 mg/dL (1.6-2.6); Potassium 4.9 mmol/L (3.5-5.1); Protein, Total 6.2 g/dL (6.4-8.2); Sodium Level 143 mmol/L (136-145)
[2020-08-19] MEDS: 0.9% Saline Lock 10 ML Syringe IV (04:51)
[2020-08-19] MEDS: TITRATION PARAMETER CHANGE 1 EACH IV (05:16)
[2020-08-19 05:35] LABS: Hematocrit 44.7 % (37-47); Hemoglobin 14.2 g/dL (12.0-15.0); Mean Corp Hgb Conc 31.8 g/dL (32-36); Mean Corpuscular Hgb 29.5 pg (27.0-32.0); Mean Corpuscular Volume 92.9 fL (81-99); Mean Platelet Vol. 10.3 fl (6.2-12.0); POSITIVE COUNT YES; POSITIVE DIFFERENTIAL YES; POSITIVE MORPHOLOGY YES; Platelet Count 311 K/mm3 (150-450); RBC Distribution Width CV 14.6 % (11.6-14.6); RBC Distribution Width SD 50.1 fl (35.1-43.9); Red Blood Count 4.81 M/mm3 (4.2-5.4)
--- NOTE | 2020-08-19 05:40 | PCM.PN.INT ---
Subjective: The patient was seen and examined at the bedside this morning. Events from the last 24 hours have been reviewed. The patient currently has a low-grade fever and is currently on both Levophed and epinephrine in an attempt to maintain hemodynamic stability. White count is significantly elevated this morning. Creatinine has worsened to 3.7. Bicarbonate was noted to be 10.0. Lactate is elevated to 10.6. AST and ALT are increased to 5020 and 4894, respectively. The patient remains comatose on the ventilator. I did call and personally speak with patient's daughter, Ivette, this morning and updated her on the patient's overall clinical state. Goals of care discussion was undertaken. At the current time, the patient's daughter would like to transition the patient to DNR CCA. She has plans to discuss things further with the patient's family and would possibly be contemplating a transition to DNR comfort care within the next 24 hours. Objective: The patient's most recent lab work, culture data and imaging studies have all been personally reviewed. Surface echocardiogram revealed a mildly dilated LV with an ejection fraction of 15% and severe global LV systolic dysfunction. Stage III diastolic dysfunction was also noted. General: - - Intubated and mechanically ventilated. HEENT: Atraumatic, Normocephalic, Sluggish Pupils Oral: No Gingival or Mucosal Lesions/ Ulcerations, - - Endotracheal and OG tubes in place Neck: Supple, No Nodes, Trachea Midline Lungs: Diminished, Rhonchi, Tachypneic Cardiovascular: Normal S1, Normal S2, No murmurs, Tachycardic Abdomen: Bowel Sounds Present, Soft, Non Tender Extremities: No clubbing, No cyanosis, No edema, Cool, Diminished Peripheral Pulses Skin: No breakdown Musculoskeletal: No Tenderness to Palpation of Joints or Extremities Lymphatic: No Cervical, Supraclavicular, or Inguinal Adenopathy Neurological: - - Nonresponsive to verbal and tactile stimulation. No gag reflex. Initiates breaths on spontaneous mode of mechanical ventilation. No spontaneous movements. Vital Signs Temp Pulse Resp BP Pulse Ox 100.5 F H 109 H 32 H 100/57 L 100 08/19/20 03:00 08/19/20 04:00 08/19/20 03:03 08/19/20 03:45 08/19/20 03:03 Oxygen Flow Rate (L/min) 15 Oxygen Delivery Method Mechanical Ventilator Weight: 154 lb 1.65 oz Body Mass Index (BMI) 31.4 Intake and Output for Last 24 Hours 08/17/20 08/18/20 08/19/20 23:59 23:59 23:59 Intake Total 2211. 810.49 / 810.49 Output Total Balance 1806. / 2006. 805.49 / 805.49 Labs (Last 48 Hours) 08/18/20 08/18/20 08/18/20 05:40 05:40 05:40 WBC 12.2 H RBC 4.62 Hgb 13.6 Hct 44.5 MCV 96.3 MCH 29.4 MCHC 30.6 L RDW Std Deviation 48.8 H RDW Coeff of Maxwell 13.8 Plt Count 125 L MPV 10.6 Neut % (Auto) Not Reportable Absolute Neuts (auto) 6.5 Absolute Lymphs (auto) 3.80 Total Counted 100 Neutrophils % (Manual) 47 Band Neutrophils % 6 H Lymphocytes % (Manual) 31 Monocytes % (Manual) 12 H Metamyelocytes % 4 H Diff Path Review May foll Platelet Estimate SLT DEC RBC Morphology NORM C+C PT 15.8 H INR 1.3 APTT 62.1 H Specimen Type Sample Site VBG pH VBG pO2 VBG HCO3 VBG Total CO2 VBG O2 Sat (Calc) VBG Base Excess POC Mix VBG pCO2 Pt Tmp O2 Delivery Device POC PEEP Sodium 141 Potassium 3.6 Chloride 103 Carbon Dioxide 22.0 Anion Gap 16 H BUN 19 H Creatinine 1.78 H Estim Creat Clear Calc 22.33 Est GFR (MDRD) Af Amer 37 L Est GFR (MDRD) Non-Af 30 L BUN/Creatinine Ratio 10.7 Glucose 388 H Lactic Acid Calcium 11.4 H Magnesium Total Bilirubin AST ALT Alkaline Phosphatase Troponin I 39.100 H* Total Protein Albumin Globulin Albumin/Globulin Ratio POC Glucose 08/18/20 08/18/20 08/18/20 08:05 08:05 08:09 WBC RBC Hgb Hct MCV MCH MCHC RDW Std Deviation RDW Coeff of Maxwell Plt Count MPV Neut % (Auto) Absolute Neuts (auto) Absolute Lymphs (auto) Total Counted Neutrophils % (Manual) Band Neutrophils % Lymphocytes % (Manual) Monocytes % (Manual) Metamyelocytes % Diff Path Review Platelet Estimate RBC Morphology PT INR APTT Specimen Type YOLANDA Sample Site L Brach VBG pH 7.00 L* VBG pO2 25 VBG HCO3 19 L VBG Total CO2 21 L VBG O2 Sat (Calc) 23 L VBG Base Excess -12 L POC Mix VBG pCO2 Pt Tmp 76.8 H* O2 Delivery Device Adult Vent POC PEEP 10 Sodium Potassium 4.8 Chloride Carbon Dioxide Anion Gap BUN Creatinine Estim Creat Clear Calc Est GFR (MDRD) Af Amer Est GFR (MDRD) Non-Af BUN/Creatinine Ratio Glucose Lactic Acid Calcium Magnesium 2.5 Total Bilirubin AST ALT Alkaline Phosphatase Troponin I 39.300 H* Total Protein Albumin Globulin Albumin/Globulin Ratio POC Glucose 08/18/20 08/18/20 08/18/20 11:57 12:07 12:07 WBC RBC Hgb Hct MCV MCH MCHC RDW Std Deviation RDW Coeff of Maxwell Plt Count MPV Neut % (Auto) Absolute Neuts (auto) Absolute Lymphs (auto) Total Counted Neutrophils % (Manual) Band Neutrophils % Lymphocytes % (Manual) Monocytes % (Manual) Metamyelocytes % Diff Path Review Platelet Estimate RBC Morphology PT INR APTT > 250.0 H* Specimen Type Sample Site VBG pH VBG pO2 VBG HCO3 VBG Total CO2 VBG O2 Sat (Calc) VBG Base Excess POC Mix VBG pCO2 Pt Tmp O2 Delivery Device POC PEEP Sodium Potassium Chloride Carbon Dioxide Anion Gap BUN Creatinine Estim Creat Clear Calc Est GFR (MDRD) Af Amer Est GFR (MDRD) Non-Af BUN/Creatinine Ratio Glucose Lactic Acid Calcium Magnesium Total Bilirubin AST ALT Alkaline Phosphatase Troponin I 45.300 H* Total Protein Albumin Globulin Albumin/Globulin Ratio POC Glucose 263 H 08/18/20 08/18/20 08/19/20 18:11 23:08 03:40 WBC RBC Hgb Hct MCV MCH MCHC RDW Std Deviation RDW Coeff of Maxwell Plt Count MPV Neut % (Auto) Absolute Neuts (auto) Absolute Lymphs (auto) Total Counted Neutrophils % (Manual) Band Neutrophils % Lymphocytes % (Manual) Monocytes % (Manual) Metamyelocytes % Diff Path Review Platelet Estimate RBC Morphology PT INR APTT Specimen Type Sample Site VBG pH VBG pO2 VBG HCO3 VBG Total CO2 VBG O2 Sat (Calc) VBG Base Excess POC Mix VBG pCO2 Pt Tmp O2 Delivery Device POC PEEP Sodium 143 Potassium 4.9 Chloride 111 H Carbon Dioxide 10.0 L Anion Gap 22 H BUN 41 H Creatinine 3.71 H Estim Creat Clear Calc 10.71 Est GFR (MDRD) Af Amer 16 L Est GFR (MDRD) Non-Af 13 L BUN/Creatinine Ratio 11.1 Glucose 131 H Lactic Acid Calcium 8.0 L Magnesium 2.4 Total Bilirubin 0.50 AST 5020 H ALT 4894 H Alkaline Phosphatase 100 Troponin I Total Protein 6.2 L Albumin 2.3 L Globulin 3.9 Albumin/Globulin Ratio 0.6 L POC Glucose 157 H 144 H 08/19/20 08/19/20 03:40 05:10 WBC Pending RBC Pending Hgb Pending Hct Pending MCV Pending MCH Pending MCHC Pending RDW Std Deviation Pending RDW Coeff of Maxwell Pending Plt Count Pending MPV Neut % (Auto) Pending Absolute Neuts (auto) Pending Absolute Lymphs (auto) Total Counted Neutrophils % (Manual) Band Neutrophils % Lymphocytes % (Manual) Monocytes % (Manual) Metamyelocytes % Diff Path Review Platelet Estimate RBC Morphology PT INR APTT Specimen Type Sample Site VBG pH VBG pO2 VBG HCO3 VBG Total CO2 VBG O2 Sat (Calc) VBG Base Excess POC Mix VBG pCO2 Pt Tmp O2 Delivery Device POC PEEP Sodium Potassium Chloride Carbon Dioxide Anion Gap BUN Creatinine Estim Creat Clear Calc Est GFR (MDRD) Af Amer Est GFR (MDRD) Non-Af BUN/Creatinine Ratio Glucose Lactic Acid 10.6 H* Calcium Magnesium Total Bilirubin AST ALT Alkaline Phosphatase Troponin I Total Protein Albumin Globulin Albumin/Globulin Ratio POC Glucose Microbiology 08/18/20 06:21 Mucosa - Nose SARS-CoV-2 Antigen (Rapid) - Final Clinical Impression(s) from Imaging Studies Chest X-Ray 08/18/20 05:55 IMPRESSION: 1. Endotracheal tube with the tip approximately 5 cm above the gina. 2. Nasogastric tube coiled in the hiatal hernia. 3. Right upper lobe pneumonia. Electronically Signed: Indra Ybarra MD at 6:35 EST Tel , Service support , Chest X-Ray 08/18/20 06:28 IMPRESSION: 1. Interval placement of right subclavian deep venous line with tip the catheter overlying the junction of the right atrium and superior vena cava with no pneumothorax. 2. Endotracheal tube and nasogastric tube both which are unchanged. 3. No change in right upper lobe pneumonia. Electronically Signed: Indra Ybarra MD at 7:15 EST Tel , Service support , KUB X-Ray 08/18/20 06:50 IMPRESSION: 1. Nasogastric tube coiled over the heart likely a hiatal hernia. 2. No bowel obstruction. Electronically Signed: Indra Ybarra MD at 7:15 EST Tel , Service support , Medical Necessity - Tobacco Use Smoking Status: Never smoker Tobacco Use: Non-smoker Assessment/Plan All Active Problems (Last Reviewed 01/22/20 @ 09:26 by Sharri Resendez) Cardiopulmonary arrest with successful resuscitation (Acute) Acute MT (Acute) Hyperlipidemia (Acute) Acute respiratory failure with hypoxia (Acute) Cardiogenic shock (Acute) Hypoxic encephalopathy (Acute) RECOMMENDATIONS: 1. Continue vasopressor support in an attempt to maintain a mean arterial pressure at or above 65 mmHg. 2. Continue Levophed and start vasopressin, with plans to wean the patient off of epinephrine, if possible. 3. Continue empiric antimicrobials. 4. Continue to withhold all sedation. 5. No additional need to recheck lactate level. 6. Obtain arterial blood gas and check TSH and ammonia. 7. Start PPI twice daily. 8. Ongoing goals of care discussion with the patient's family. IMPRESSIONS: 1. Acute hypoxemic respiratory failure status post V. fib cardiac arrest/myocardial infarction Most likely precipitated by acute coronary syndrome. However, I cannot discount the possibility of possible aspiration. Therefore, the patient will be continued on empiric antimicrobials. Plan to continue to wean FiO2 as tolerated to maintain oxygen saturations at or above 90%. 2. Encephalopathy, likely anoxic in etiology The patient is currently nonresponsive to both verbal and tactile stimulation. Although she does initiate breaths on her own, the patient is essentially comatose and nonresponsive. I explained to the patient that my concern is that she likely developed anoxic brain injury as a consequence of #1. Prognosis is overall quite poor. Plan to continue current supportive measures. Continue to withhold all sedating medications. 3. Septic versus cardiogenic shock Although the patient does meet septic shock criteria, I cannot discount the possibility of a cardiogenic etiology as well. The patient will be continued on vasopressor support as ordered, with plans to wean to maintain a mean arterial pressure at or above 65 mmHg. Continue supportive measures including antibiotics as noted above. 4. Acute kidney injury Likely prerenal in etiology/ischemic ATN in the setting of #3. Given that the patient is profoundly acidotic, bicarbonate infusion will be started. If the patient's family wishes her to remain a full code, nephrology will need to be consulted with consideration for dialysis. 5. Shock liver Likely secondary to acute coronary syndrome and subsequent shock state. Anticipate stabilization and eventual improvement with hemodynamic stability. Continue vasopressors as ordered. Monitor liver function moving forward. 6. History of hiatal hernia/hyperglycemia/obesity/hypertension CODE status: Discussed CODE status at length including difference between FULL code, DNR-CCA and DNR-CC status. Following discussions about the differences in these status, patient's family requested DNR comfort care CODE STATUS. Advanced Care Planning Face to Face Time: 32 minutes UPDATE: I met with the patient's family this afternoon at the bedside to further discuss the patient's overall clinical state and goals of care. Following my explanation of the patient's overall poor prognosis, the patient's family elected to transition her to DNR comfort care. There are plans for palliative withdrawal of life support including endotracheal tube and vasopressors. The patient will be premedicated accordingly. CODE STATUS has been updated. TIME: 87 minutes of critical care time, independent of procedures, was spent addressing the patient's acute hypoxemic respiratory failure, status post cardiac arrest, encephalopathy, septic versus cardiogenic shock, acute kidney injury, shock liver, review of all data and collaboration with the care team. ([id number], [id number]) Procedures: [id number] Critial Care Addl 30 Min 9xxxx: [id number] Critical care first hour
[2020-08-19 05:46] LABS: White Blood Count 40.6 K/mm3 (4.4-11.0)
--- NOTE | 2020-08-19 05:55 | RAD_ITS ---
STUDY: X-RAY - ABDOMEN/PELVIS REASON FOR EXAM: Female, 64 years old. og tube placement TECHNIQUE: Single AP view of the abdomen / pelvis. COMPARISON: August 18, 2020 Limited abdomen FINDINGS: Orogastric tube is repositioned. The tip is in the stomach in satisfactory position. There is an unremarkable bowel gas pattern. There is no demonstrated free abdominal air. There is an elongated appearance of the liver suggesting Melissa''s lobe. Normal soft tissue structures. There are diffuse degenerative changes of the visualized lumbar spine. RAD/Abdomen Single View IMPRESSION: Repositioning of the orogastric tube. Now in satisfactory position. Electronically Signed: Gillian Agarwal MD at 5:41 EST Tel , Service support ,
--- NOTE | 2020-08-19 05:55 | RAD_ITS ---
STUDY: X-RAY CHEST REASON FOR EXAM: Female, 64 years old. Respiratory distress TECHNIQUE: Single AP portable view of the chest. COMPARISON: Comparison is made with prior study dated 08/18/2020 at 6:38 AM. FINDINGS: And endotracheal tube is in situ. The tip is at 5.3 sinus proximal to the gina. An orogastric tube is seen with the tip below the left hemidiaphragm. A right-sided subclavian venous line is in situ with the tip at the junction of superior vena cava and right atrium. Since prior study, there has been improvement in the bilateral pulmonary infiltrates. Mild residual changes persist at both lung bases more prominent on the left side. There is no demonstrated pleural abnormality. Normal size heart. Normal mediastinum and zain. Normal visualized pulmonary arteries. There is atherosclerotic calcification of the aortic arch with tortuosity. Normal visualized thoracic spine. Normal visualized ribs, clavicles, and shoulders. There is no demonstrated abnormality of the visualized soft tissue structures of the upper abdomen. RAD/Chest 1 View (Portable) IMPRESSION: Improved aeration of both lungs with mild residual changes as described. The support tubes are unchanged. Electronically Signed: Victor Manuel Dumont, at 10:01 EST , Service support ,
[2020-08-19 06:50] LABS: Differential Indicated MANUAL DIFF; Neutrophil-Band 28 % (0-5); Neutrophil-Segmented 53 % (47-70); Scan Smear per Review Criteria MANUAL DIFF; Total Cells Counted 100 (MANUAL DIFF)
[2020-08-19 06:51] LABS: Absolute Lymphocyte Count 2.84 X10^3/uL (0.83-4.51); Absolute Neutrophil Count 32.9 X10^3/uL (2.0-7.7); Lymphocyte 7 % (19-41); Metamyelocyte 4 % (0-1); Monocyte 8 % (0-10); Platelet Estimate ADEQUATE (ADEQ)
[2020-08-19 06:52] LABS: Red Cell Morphology NORM C+C NORMAL (NORM C&C)
[2020-08-19 07:44] LABS: Reflex Lactate? Y
[2020-08-19 08:07] LABS: Thyroid Stim Hormone (TSH) 6.43 uIU/mL (0.358-3.74)
--- NOTE | 2020-08-19 08:16 | PCM.PN.HOSP ---
Patient Problems: Active and Suspected Problems (Last Reviewed 01/22/20 @ 09:26 by Sharri Resendez) Cardiopulmonary arrest with successful resuscitation (Acute) Acute MS (Acute) Hyperlipidemia (Acute) Acute respiratory failure with hypoxia (Acute) Cardiogenic shock (Acute) Secondary to acute myocardial infarct. According to the echocardiogram done at the bedside patient does have underlying severe triple-vessel coronary artery disease Hypoxic encephalopathy (Acute) the return of sustained spontaneous circulation was only achieved after 90 minutes at home, the chances of severe hypoxic encephalopathy is highly likely Subjective: Patient intubated. No sedation present at this time. Is on Levophed at 30 and is vasopressin being initiated. Patient remains unresponsive and many primitive reflexes are absent although she is breathing over the ventilator. No response to pain. Vitals/I&O's: Vital Signs Temp Pulse Resp BP Pulse Ox 100 F H 110 H 29 H 75/54 L 99 08/19/20 05:00 08/19/20 05:00 08/19/20 05:00 08/19/20 05:15 08/19/20 05:00 Oxygen Flow Rate (L/min) 15 Oxygen Delivery Method Mechanical Ventilator Weight: 69.9 kg Body Mass Index (BMI) 31.4 Intake and Output for Last 24 Hours 08/17/20 08/18/20 08/19/20 23:59 23:59 23:59 Intake Total 2211. 926.96 / 926.96 Output Total / 205 Balance 180.2006. 919.96 / 919.96 General: - - Intubated and sedated HEENT: Atraumatic, Normocephalic, - - Pupils are slow to react but 3 mm bilaterally Oral: - - ETT and OG are in place Neck: Supple, No JVD, Trachea Midline, Thyroid Normal Size and Texture Lungs: Clear to auscultation, Normal air movement, No rhonchi, No wheeze, No rales Cardiovascular: Regular rate, Regular Rhythm, Normal S1, Normal S2, No murmurs, No Ectopic Activity, No rub noted, No Gallop Abdomen: Soft, Non Tender, Non-Distended, Hypoactive Bowel Sounds, Obese Extremities: No clubbing, No cyanosis, Cool, Edema - Bilateral upper extremity edema distally, - - Decreased peripheral pulses secondary to pressors Skin: No breakdown, Rash Present Musculoskeletal: - - Bilateral bunions first digit lower extremity Lymphatic: No Cervical, Supraclavicular, or Inguinal Adenopathy Neurological: - - Intermittent myoclonus, reflexes are hypoactive, no purposeful movement Psych/Mental Status: - - Unable to assess Microbiology Past 72 Hours 08/18/20 06:21 Mucosa - Nose SARS-CoV-2 Antigen (Rapid) - Final Laboratory Results 08/18/20 08:05: Troponin I 39.300 H* 08/18/20 08:05: Potassium 4.8, Magnesium 2.5 08/18/20 08:09: Specimen Type YOLANDA, Sample Site L Brach, VBG pH 7.00 L*, VBG pO2 25, VBG HCO3 19 L, VBG Total CO2 21 L, VBG O2 Sat (Calc) 23 L, VBG Base Excess -12 L, POC Mix VBG pCO2 Pt Tmp 76.8 H*, O2 Delivery Device Adult Vent, POC PEEP 10 08/18/20 11:57: POC Glucose 263 H 08/18/20 12:07: Troponin I 45.300 H* 08/18/20 12:07: APTT > 250.0 H* 08/18/20 18:11: POC Glucose 157 H 08/18/20 23:08: POC Glucose 144 H 08/19/20 03:40: Sodium 143, Potassium 4.9, Chloride 111 H, Carbon Dioxide 10.0 L, Anion Gap 22 H, BUN 41 H, Creatinine 3.71 H, Estim Creat Clear Calc 10.71, Est GFR (MDRD) Af Amer 16 L, Est GFR (MDRD) Non-Af 13 L, BUN/Creatinine Ratio 11.1, Glucose 131 H, Calcium 8.0 L, Magnesium 2.4, Total Bilirubin 0.50, AST 5020 H, ALT 4894 H, Alkaline Phosphatase 100, Total Protein 6.2 L, Albumin 2.3 L, Globulin 3.9, Albumin/Globulin Ratio 0.6 L 08/19/20 03:40: Lactic Acid 10.6 H* 08/19/20 03:40: TSH 6.43 H 08/19/20 05:10: WBC 40.6 H*, RBC 4.81, Hgb 14.2, Hct 44.7, MCV 92.9, MCH 29.5, MCHC 31.8 L, RDW Std Deviation 50.1 H, RDW Coeff of Maxwell 14.6, Plt Count 311, MPV 10.3, Immature Gran % (Auto) [employer], Neut % (Auto) [employer] CHAIRPERSON, Lymph % (Auto) [employer] CHAIRPERSON, Stephens % (Auto) [employer] CHAIRPERSON, Eos % (Auto) [employer] CHAIRPERSON, Baso % (Auto) [employer] CHAIRPERSON, Absolute Neuts (auto) 32.9 H, Absolute Lymphs (auto) 2.84, Total Counted 100, Neutrophils % (Manual) 53, Band Neutrophils % 28 H, Lymphocytes % (Manual) 7 L, Monocytes % (Manual) 8, Metamyelocytes % 4 H, Nucleated RBC % [employer]IR[employer]ERSON, Platelet Estimate ADEQUATE, RBC Morphology NORM C+C, [place] Cells TF 08/19/20 08:05: Ammonia Pending 08/19/20 08:05: MRSA (PCR) Pending Current Medications Acetaminophen (Acetaminophen 650 Mg Suppository) 650 mg RECTAL Q4H PRN PRN PRN Reason: Pain 1-10 or Fever Last Admin: 08/18/20 21:52 Dose: 650 mg Documented by: Chlorhexidine Gluconate (Chlorhexidine 15 Ml) 15 ml PO BID [facility] Last Admin: 08/18/20 21:11 Dose: 15 ml Documented by: Norepinephrine Bitartrate 8 mg (/ Sodium Chloride) 250 mls @ 9.375 mls/hr CONT INF .[id number] [facility]; Protocol Last Titration: 08/19/20 05:15 Dose: 30 mcg/min, 56.3 mls/hr Documented by: Sodium Chloride () 250 mls @ 15 mls/hr IV .[id number] PRN PRN Reason: Saline Flush Last Infusion: 08/19/20 05:00 Dose: 0 mls/hr Documented by: Sodium Chloride () 250 mls @ 15 mls/hr IV .[id number] PRN PRN Reason: Additional IVPB Infusion Ampicillin Sodium/Sulbactam Sodium 1,500 mg/ Sodium Chloride 50 mls @ 100 mls/hr IV Q8 [facility] Last Infusion: 08/19/20 07:41 Dose: Infused Documented by: Famotidine 20 mg/ Sodium (Chloride) 10 mls @ 300 mls/hr IV DAILY [facility] Last Infusion: 08/18/20 10:40 Dose: Infused Documented by: Epinephrine HCl 4 mg/ Sodium (Chloride) 250 mls @ 26.213 mls/hr CONT INF .[id number] [facility]; Protocol Last Admin: 08/19/20 04:38 Dose: 0.1 mcg/kg/min, 25.9 mls/hr Documented by: Pantoprazole Sodium 40 mg/ (Sodium Chloride) 110 mls @ 330 mls/hr IV Q12 OLESYA Vasopressin 20 units/ Sodium (Chloride) 25 mls @ 3 mls/hr IV .[id number] OLESYA Last Admin: 08/19/20 08:14 Dose: 0.04 units/min, 3 mls/hr Documented by: Insulin Human Lispro (Insulin Lispro 100 Unit/Ml Insuln.Pen) 0 unit SC Q6 OLESYA; Protocol Last Admin: 08/19/20 04:58 Dose: Not Given Documented by: Lorazepam (Lorazepam 2 Mg/Ml Syringe) 2 mg IV Q2H PRN PRN PRN Reason: SEIZURES Last Admin: 08/18/20 20:28 Dose: 2 mg Documented by: Sodium Chloride (0.9% Saline Lock 10 Ml Syringe) 10 - 40 ml IV UD PRN PRN Reason: Multilumen/Costello Flush Last Admin: 08/19/20 04:51 Dose: 30 ml Documented by: Sodium Chloride (0.9 % Nacl (Sterile) Posiflush 10 Ml) 10 - 40 ml IV UD PRN PRN Reason: Port access or dressing change Sodium Chloride (0.9% Saline Lock 10 Ml Syringe) 10 - 40 ml IV UD PRN PRN Reason: SALINE FLUSH STROKE Vital Signs/Narrative: Vital Signs Temp Pulse Resp BP Pulse Ox 08/19/20 05:15 75/54 L 08/19/20 05:00 100 F H 110 H 29 H 96/59 L 99 08/19/20 04:45 85/60 L 08/19/20 04:30 92/64 Medical Necessity - Tobacco Use Smoking Status: Never smoker Tobacco Use: Non-smoker Assessment/Plan All Active Problems (Last Reviewed 01/22/20 @ 09:26 by Sharri Resendez) Cardiopulmonary arrest with successful resuscitation (Acute) Acute MS (Acute) Hyperlipidemia (Acute) Acute respiratory failure with hypoxia (Acute) Cardiogenic shock (Acute) Hypoxic encephalopathy (Acute) Acute hypoxic respiratory failure status post V. fib arrest/acute MS -Continue ventilator support -No weaning at this time -Chest x-ray reviewed supple right lower lobe infiltrate -Continue antibiotics -Troponin peaked at 45 -Echo was performed on 08/18/2020--> EF 15% with severe global dysfunction and increased LA filling pressures with stage III diastolic dysfunction -Candidate for cardiac intervention -Overall prognosis is extremely poor --> code status changed to DNR CCA Suspect anoxic encephalopathy -Patient on no sedation -Many primitive reflexes absent -Patient is however breathing over the ventilator at least brainstem function -AFIA, ammonia, ABG pending Septic versus cardiogenic shock -Is on Levophed at 30 and vasopressin being initiated -Been on epinephrine drip this is being withdrawn -Continue pressors for blood pressure support -empiric antimicrobials -Right subclavian central venous catheter in place Lactic acidosis -Lactic acid 10 -Not a candidate for CVVHD or HD -May need bicarb gtt -ED pending CHEYANNE -Urine output low -Creatinine is trending up -Not a candidate for HD with her hypotension -Would need CVVHD but in this case prognosis poor and would likely not tolerate Shock liver -AST is greater than 5000;ALT greater than 4000 -Prognosis poor Acute leukocytosis -Suspect at least somewhat reactive -Continue antibiotics empirically Lactic acidosis History of hypertension -Was on HCTZ 25 mg daily at home -Hold antihypertensives History of hyperlipidemia -Was on Zetia 10 mg daily at home -Hold Hypothyroidism -TSH pending -Thyroxine on hold Obesity -Placate overall prognosis DVT/GI prophylaxis -Had been on heparin drip coags currently supratherapeutic related to liver failure -Protonix twice daily IV push CODE STATUS/prognosis -Critical care medicine had discussion with the daughter about CODE STATUS and prognosis -CODE STATUS changed to DNR CCA with intubation but per discussion with Dr. Ludwig daughter is leaning towards terminal extubation with poor prognosis Inpatient E&M: [id number] [facility] L[facility]
[2020-08-19 08:26] LABS: Base Excess -26 mmol/L (-2 to +2); Bicarbonate 5.9 mmol/L (22-26); Blood Gas Specimen Type ART; FI02 35; Mode AC; O2 Delivery Device Adult Vent; PEEP 5; PO2 90 mmHG (75-100); RR 12; SITE R Fem; SO2 91 % (95-99); Total Carbon Dioxide 7 mmol/L; Vt 450; pCO2 25.1 mmHg (35-45); pH 6.98 (7.35-7.45)
--- NOTE | 2020-08-19 08:29 | CPS ---
ABG drawn by Dr. Almeida. Critcal results read to Dr. Ludwig.
[2020-08-19 09:44] LABS: M R Staph aureus DNA By PCR Negative (Negative); Probe Check PASS; Specimen Processing Control PASS
[2020-08-19] MEDS: Chlorhexidine 15 ML PO (10:05)
--- NOTE | 2020-08-19 10:41 | CASEMGMT ---
Addendum entered by Nancy Alberto 08/19/20 11:06: SW spoke w/Chaplain Hollis to let him know what is going on, he states he can call the local parish if the manager registration from [place] cannot come in, to ask for a local manager registration to come see pt. Chaplain Hollis is also available. Father Evens Lassiter then called into ICU stating that pt's daughter called to see if he can come to do Last Rites, SW let him know he can. He is going to call daughter back to let her know and see if she wants to be present when he is here. SW let frontload driver know that Father Sravani is coming in and to let him into ICU. SW also let Chaplain Hollis know. He is going to come up to check on family also, pt's boyfriend and boyfriend's son are here at present. BRITTON Garcia Original Note: SW participated in ICU rounds. SW called daughter after rounds, support offered. SW asked about POA, she states pt did not complete POA papers. SW checked w/daughter about family, pt has two children, she and a son. SW explained that without POA papers, she and her brother, pt's son make decisions together. Daughter is coming in, in about an hour. She asked if their manager registration can come in to do last rights, or if there is a print room worker here. JOHNSON explained we do have a tattoo and body artist, but SW will find out if the family manager registration can come in. JOHNSON checked w/payroll and benefits manager, she states that the manager registration can come in, we just need to know the name to let the frontload driver know. SW called daughter back to let her know. Daughter will find out if the manager registration can indeed come in, and if so she will let SW know when she gets here the name. SW will continue to follow and remains available for support to pt's family. BRITTON Garcia
[2020-08-19 12:15] LABS: Bedside Glucose 143 mg/dL (70-110)
--- NOTE | 2020-08-19 12:21 | CASEMGMT ---
Pt's daughter is here, SW spoke w/her, let her know will call [facility] and let the field marketing associate know she is here. SW called [facility], spoke w/Father Evens, let him know daughter is here. SW went to pt's room, spoke w/daughter, pt's boyfriend and his son, offered support. Daughter had some questions, SW answered questions with input of RN. She also asked for local cremation resources, list provided. SW asked daughter about pt's son, she states he is in [place] and has decided due to COVID he is not coming to see pt. SW continued to offer support to daughter. SW let family know that SW is here should they need anything. BRITTON Garcia
[2020-08-19] MEDS: Amiodarone 360 MG in Dextrose 5% Viaflo Bag 192.8 ML 16.7 MG CONT INF ×2 (12:41)
[2020-08-19 13:21] LABS: Pathologist Review Reviewed
[2020-08-19 13:24] LABS: Pathologist Review Reviewed
--- NOTE | 2020-08-19 13:48 | CHAPLAIN ---
Type of Pastoral Visit _x__ Initial Visit ___ Follow-up Visit ___ On-call Visit ___ General Patient Visit ___ Spiritual Assessment ___ Family Conference ___ Bereavement ___ Rapid Response ___ Code Blue ___ Other (describe below) Pastoral Care Referral From ___ Patient _x__ Family ___ Nurse ___ Physician _x__ Buttonhole Facer ___ Cotton Classer ___ Other (describe below) Sacrament/Intervention ___ Active listening ___ Anointing ___ Buddhist ___ Bereavement ___ Communion ___ Nicolasa exploration ___ _x__ Life review _x__ Prayer ___ Reconciliation ___ Sacrament of Sick ___ Supportive presence ___ Wedding _x__ Other (describe below) Pastoral Comments request for end of life support to family; met with SO and his son in patient's room and learned more about patient and her life; met with daughter and offered support; escorted lead inspector from [facility] into room to perform Last Rites for patient; ongoing support during this time;
--- NOTE | 2020-08-19 14:12 | NURSING ---
Addendum entered by Mamta Licea 08/19/20 15:41: 1529: Levophed turned off Addendum entered by Mamta Licea 08/19/20 15:05: 1500: Levophed infusing at 30mcg/min Original Note: Dr. Ludwig spoke to family about terminal extubation. Family made the choice to terminally wean. All medications discontinued by physician. Family then decided they are not ready right now to extubate, waiting on another family member. All medications are still infusing until the patients family is ready. Levophed bag changed at 1415.
--- NOTE | 2020-08-19 14:58 | CASEMGMT ---
SW spoke daughter in room, as well as pt's boyfriend and his son. Daughter stated to this SW that she is having a panic attack. She said her is coming soon, once the kids get out of school. She is also waiting for her brother to speak w/his and call her back. She states hysteria runs in her family. SW encouraged daughter to take a break and walk out of the room. She did get up and walk out for a moment, SW gave her some cookies and a beverage when she returned, encouraged her to eat and drink something. Daughter back in room now speaking w/pt's boyfriend and his son, says is okay. SW let her know that SW is here should she need anything. BRITTON Garcia
[2020-08-19] MEDS: LORazepam 2 MG/ML Syringe IV (15:23)
[2020-08-19] MEDS: Morphine 2 MG/ML Syringe IV (15:23)
--- NOTE | 2020-08-19 15:36 | NURSING ---
Comfort medications given (see MAR) and patient terminally extubated at 1529, family called to bedside.
--- NOTE | 2020-08-19 16:30 | NURSING ---
Patient rhythm went asystole, no heart beat audible, no pulse. Time of called by this RN and verified with second RN, Norbert Cabrales RN Family at bedside.
--- NOTE | 2020-08-19 16:30 | PN.CARD_ITS ---
Subjectve: This is a 64-year-old white female who remains in the ICU mechanically intubated/ventilated. She was evaluated earlier this day. At that point in [facility] she remained on 3 IV vasopressor agents as well as IV amiodarone. Objective: Vital Signs Temp Pulse Resp BP Pulse Ox 100.5 F H 66 33 H 99/50 L 100 08/19/20 12:00 08/19/20 16:21 08/19/20 15:00 08/19/20 15:00 08/19/20 11:00 Oxygen Flow Rate (L/min) 15 Oxygen Delivery Method Mechanical Ventilator Weight: 154 lb 1.65 oz Body Mass Index (BMI) 31.4 Intake and Output for Last 24 Hours 08/17/20 08/18/20 08/19/20 23:59 23:59 23:59 Intake Total 2716.82 / 2716.82 Output Total / 47 / 47 Balance 180. / 2669.82 / 2669.82 Lungs: Clear to auscultation Cardiovascular: Regular Rhythm, Normal S1, Normal S2 Abdomen: Bowel Sounds Present, Soft Extremities: No edema 08/19/20 03:40: Sodium 143, Potassium 4.9, Chloride 111 H, Carbon Dioxide 10.0 L , Anion Gap 22 H, BUN 41 H, Creatinine 3.71 H, Est GFR (MDRD) Af Amer 16 L, Est GFR (MDRD) Non-Af 13 L, BUN/Creatinine Ratio 11.1, Glucose 131 H, Calcium 8.0 L, Magnesium 2.4, Total Bilirubin 0.50 08/19/20 03:40: Lactic Acid 10.6 H* 08/19/20 05:10: WBC 40.6 H*, RBC 4.81, Hgb 14.2, Hct 44.7, MCV 92.9, MCH 29.5, MCHC 31.8 L, Plt Count 311, MPV 10.3, Immature Gran % (Auto) FIELD MERCHANDISER, Neut % (Auto) FIELD MERCHANDISER, Lymph % (Auto) FIELD MERCHANDISER, [place] % (Auto) FIELD MERCHANDISER, Eos % (Auto) FIELD MERCHANDISER, Baso % (Auto) FIELD MERCHANDISER, Absolute Neuts (auto) 32.9 H, Total Counted 100, Neutrophils % (Manual) 53, Band Neutrophils % 28 H, Lymphocytes % (Manual) 7 L, Monocytes % (Manual) 8, Metamyelocytes % 4 H, Nucleated RBC % FIELD MERCHANDISER 08/19/20 08:19: pH 6.98 L*, Bicarbonate Actual 5.9 L, Base Excess -26 L, O2 Saturation 91 L, ABG pCO2 25.1 L, ABG pO2 90 Rhythm: Sinus rhythm Medical Necessity - Tobacco Use Smoking Status: Never smoker Tobacco Use: Non-smoker Assessment/Plan 1. Acute coronary syndrome The patient was evaluated by Dr. Villagran of interventional cardiology. Per Dr. Villagran she was thought to have an acute coronary syndrome with acute ST segment elevation AK with subsequent findings of cardiogenic shock. Based upon his review of her clinical course it appeared that she was going to require continued conservative medical management and was not a candidate for further evaluation in the cardiac catheterization laboratory-secondary to her prolonged cardiopulmonary arrest situation and concerns of hypoxic/anoxic encephalopathy. Thus she has been in the ICU on conservative medical therapy. 2. Ischemic cardiomyopathy Per the previous echocardiogram she was described as having left ventricular regional wall motion abnormalities with overall diminished LV systolic function/LVEF of approximately 15%. 3. Cardiogenic shock The patient was previously thought to have, per Dr. Villagran, evidence of cardiogenic shock based upon her acute coronary syndrome/AK and her ischemic cardiomyopathy. Based upon her prolonged cardiopulmonary arrest situation out of the hospital as well as what occurred in the emergency department concerns of hypoxic/anoxic encephalopathy his recommendation was for continued conservative medical m anagement and no immediate trip to the cardiac catheterization laboratory. Overall, at the present time, the patient has remained in the ICU. She has required multiple IV vasopressors to support her blood pressure. She remains on IV amiodarone. Her case was discussed with Dr. Ludwig of the pulmonology/critical care staff. At the present time he was discussing the patient's case with her family members as to a decision with respect to withdrawing medical therapy/care and proceeding with comfort care measures/possible hospice care. From a cardiovascular standpoint there are no plans for any additional cardiovascular diagnostic studies/intervention at this time based upon the aforementioned concerns and poor prognosis of the patient. This note was generated using a voice recognition system and there may be incorrect words, spelling or punctuation that were not noted when reviewing the office note prior to saving.
--- NOTE | 2020-08-19 16:37 | CHAPLAIN ---
Type of Pastoral Visit ___ Initial Visit _x__ Follow-up Visit ___ On-call Visit ___ General Patient Visit ___ Spiritual Assessment ___ Family Conference ___ Bereavement ___ Rapid Response ___ Code Blue ___ Other (describe below) Pastoral Care Referral From ___ Patient ___ Family ___ Nurse ___ Physician ___ Supervisor Net Making ___ Water And Gas Helper _x__ Other (describe below) Sacrament/Intervention ___ Active listening ___ Anointing ___ Uatsdin ___ Bereavement ___ Communion ___ Nicolasa exploration ___ ___ Life review ___ Prayer ___ Reconciliation ___ Sacrament of Sick _x__ Supportive presence ___ Wedding ___ Other (describe below) Pastoral Comments follow up to check on family and offer support; gave coffee and time to talk
--- NOTE | 2020-08-19 17:07 | EXP.PCM_ITS ---
Preliminary Cause of Cardiogenic shock Date of Admission: 08/18/20 Date of : 08/19/20 - Principle Diagnosis Problem List: Active and Suspected Problems (Last Reviewed 01/22/20 @ 09:26 by Sharri Resendez) Cardiopulmonary arrest with successful resuscitation (Acute) Acute SC (Acute) Hyperlipidemia (Acute) Acute respiratory failure with hypoxia (Acute) Cardiogenic shock (Acute) Secondary to acute myocardial infarct. According to the echocardiogram done at the bedside patient does have underlying severe triple-vessel coronary artery disease Hypoxic encephalopathy (Acute) the return of sustained spontaneous circulation was only achieved after 90 minutes at home, the chances of severe hypoxic encephalopathy is highly likely Hospital Course Ms Jarquin is a 64-year-old female with a past medical history of hypertension, GERD, hyperlipidemia, and hypothyroidism who presented to the emergency department at [facility] after cardiopulmonary arrest. Per the squad report the boyfriend stated that the patient had been complaining of chest pain and shortness of breath on and on for couple of days prior to admission. Around 4:00 in the morning on the day of admission they were in the living room and she complained of chest, arm, and back pain. She then suddenly collapsed and CPR was performed for 10 minutes by the boyfriend prior to the squad being called. Upon EMS arrival her initial rhythm was ventricular fibrillation and ACLS protocol was performed she received a total of 3 shocks and an IO was placed in the right proximal tibia. She had 5 rounds of epinephrine and upon presentation the emergency department was in PEA and CPR was continued. Patient was emergently intubated in the emergency department and our OCS was obtained. Initial EKG showed right bundle branch block, atrial fibrillation, and no ST segment elevation. With ventricular fibrillation arrest STEMI alert was called and the case was discussed with cardiology and they elected not to pursue cardiac intervention at this time. She was started on a heparin drip amiodarone drip and IV dopamine. Myoclonus was noted in the emergency department. Her lab work this morning showed marked white count elevation. An ABG was obtained and her pH was 6.98 with a PCO2 of 25 and a PO2 of 90. CMP this morning showed an AST of 5020 and an ALT of 5894. Her bicarbonate was 10. She had worsening renal failure with a creatinine of 3.71 and urine output was poor. Her lactic acid was greater than 10. Echocardiogram from the previous night was reviewed and showed an EF of 15% with global dysfunction. Critical care medicine had a discussion early this morning with her family and initial CODE STATUS was changed to DNR CCA. With her creatinine and her metabolic acidosis a bicarb drip was initiated. She would not tolerate CVVHD or intermittent hemodialysis. She was on Levophed at 30, epinephrine, and vasopressin. Further discussions were had with the daughter throughout the day and the family elected to transition to comfort care measures only and she was terminally extubated at 1529. Time of was 1630.
[2020-08-24 07:11] LABS: Bedside Glucose 238 mg/dL (70-110)
== END 2020-08-19 18:45 ==
LOC: ED 05:50 → ICU 06:13
PROVIDERS: Internal Medicine; Internal Medicine Critical Care Medicine; Admitting Provider Internal Medicine; Emergency Provider Emergency Medicine; PCP Family Medicine; Referring Provider Internal Medicine Cardiovascular Disease; Visit Provider Internal Medicine
DX: I21.9 Acute myocardial infarction, unspecified (principal); J96.01 Acute respiratory failure with hypoxia; K72.00 Acute and subacute hepatic failure without coma; N17.0 Acute kidney failure with tubular necrosis; G93.1 Anoxic brain damage, not elsewhere classified; E87.2 Acidosis; J81.1 Chronic pulmonary edema; I46.9 Cardiac arrest, cause unspecified; R57.0 Cardiogenic shock; E78.5 Hyperlipidemia, unspecified; E03.9 Hypothyroidism, unspecified; K21.9 Gastro-esophageal reflux disease without esophagitis; Z66 Do not resuscitate; I49.01 Ventricular fibrillation; I45.10 Unspecified right bundle-branch block; I48.91 Unspecified atrial fibrillation; K44.9 Diaphragmatic hernia without obstruction or gangrene; R73.9 Hyperglycemia, unspecified; I11.9 Hypertensive heart disease without heart failure; E66.9 Obesity, unspecified; E78.00 Pure hypercholesterolemia, unspecified; R29.2 Abnormal reflex; Z95.828 Presence of other vascular implants and grafts; Z79.890 Hormone replacement therapy; Z79.899 Other long term (current) drug therapy; Z85.840 Personal history of malignant neoplasm of eye; I25.10 Atherosclerotic heart disease of native coronary artery without angina pectoris; I25.5 Ischemic cardiomyopathy; R56.9 Unspecified convulsions; G25.3 Myoclonus; Z68.26 Body mass index [BMI] 26.0-26.9, adult
CPT/HCPCS: 31500; 31720; 36556; 51702; 71045; 74018; 80048; 80053; 82140; 82803; 82962; 83605; 83735; 84132; 84443; 84484; 85025; 85610; 85730; 87426; 87641; 92950; 93005; 93306; 94002; 94003; 97802; 99285; J7030; J7050; Q9957; A4216; C1751; C8929; J1940; J3490